=== PATIENT | female | born 1940 | race Caucasian/White ===

== ENCOUNTER → 2024-02-02 11:03 | Outpatient (REF) | payer OTHER, SELFPAY ==
[2024-02-02 13:46] LABS: % Basophils 0.6 % (0-2); % Eosinophils 2.9 % (0-6); % Immature Granulocytes 0.2 % (0-0.5); % Lymphocytes 33.2 % (20.5-51.1); % Monocytes 7.3 % (1.7-9.3); % Neutrophils 55.8 % (42.2-75.2); Absolute Eosinophils 0.2 10^3/uL (0-0.7); Absolute Lymphocytes 1.8 10^3/uL (1.2-3.4); Absolute Monocytes 0.4 10^3/uL (0.1-0.6); Hematocrit 40.9 % (37.0-47.0); Hemoglobin 13.8 g/dL (12.0-16.0); Mean Corp Hgb Conc. 33.7 g/dL (33.0-37.0); Mean Corpuscular Hgb 29.1 pg (27.0-31.0); Mean Corpuscular Volume 86.3 fL (81.0-99.0); Mean Platelet Volume 9.1 fL (7.4-10.4); Nucleated Red Blood Cells % 0 %; Platelet Count 234 10^3/uL (130-400); Red Blood Cell Count 4.74 10^6/uL (4.20-5.40); Red Cell Dist. Width 13.2 % (11.5-14.5); White Blood Cell Count 5.5 10^3/uL (4.8-10.8)
[2024-02-02 14:05] LABS: ALT (SGPT) 24 U/L (0-35); AST (SGOT) 30 U/L (14-36); Albumin 4.3 g/dl (3.5-5.0); Alkaline Phosphatase 78 U/L (38-126); Blood Urea Nitrogen 13 mg/dl (7-17); Calcium 10.1 mg/dl (8.4-10.2); Carbon Dioxide 27 mmol/L (22-30); Chloride 106 mmol/L (98-107); Glucose 93 mg/dl (70-99); HDL Cholesterol 55 mg/dl; LDL Cholesterol, Calculated 136 mg/dl; Potassium 4.5 mmol/L (3.5-5.1); Sodium 139 mmol/L (135-145); Total Bilirubin 0.5 mg/dl (0.2-1.3); Total Cholesterol 221 mg/dl (50-199); Total Protein 6.5 g/dl (6.3-8.2); Triglyceride 150 mg/dl (10-149); Very Low Density Lipoprotein 30 mg/dl (0-30); eGFR > 60.00
[2024-02-02 14:13] LABS: Free T4 1.45 ng/dl (0.78-2.19); Vitamin D, 25-OH*** 34.1 ng/mL (30-80)
[2024-02-02 14:26] LABS: TSH 1.93 uIU/ml (0.47-4.68)
== END ==
LOC: REG 11:03
PROVIDERS: ATTENDING PHYSICIAN Physician Assistant
DX: I10 Essential (primary) hypertension (principal); Z68.41 Body mass index [BMI] 40.0-44.9, adult; F41.9 Anxiety disorder, unspecified; E83.52 Hypercalcemia; G56.02 Carpal tunnel syndrome, left upper limb; K21.9 Gastro-esophageal reflux disease without esophagitis; Z12.31 Encounter for screening mammogram for malignant neoplasm of breast
CPT/HCPCS: 36415; 80053; 80061; 82306; 84439; 84443; 85025

== ENCOUNTER 2024-05-17 03:29 | Observation (INO) | payer OTHER, SELFPAY ==
[2024-05-16 22:30] VITALS: BMI 40.3
[2024-05-16 22:55] VITALS: BP 158/106
[2024-05-16 23:07] LABS: % Basophils 0.3 % (0-2); % Eosinophils 2.1 % (0-6); % Immature Granulocytes 0.1 % (0-0.5); % Monocytes 8.6 % (1.7-9.3); % Neutrophils 55.9 % (42.2-75.2); Absolute Eosinophils 0.2 10^3/uL (0-0.7); Absolute Lymphocytes 2.3 10^3/uL (1.2-3.4); Absolute Monocytes 0.6 10^3/uL (0.1-0.6); Absolute Neutrophils 3.9 10^3/uL (1.4-6.5); Hematocrit 42.1 % (37.0-47.0); Hemoglobin 14.6 g/dL (12.0-16.0); Mean Corp Hgb Conc. 34.7 g/dL (33.0-37.0); Mean Corpuscular Hgb 29.7 pg (27.0-31.0); Mean Corpuscular Volume 85.7 fL (81.0-99.0); Mean Platelet Volume 9.1 fL (7.4-10.4); Nucleated Red Blood Cells % 0 %; Platelet Count 198 10^3/uL (130-400); Red Blood Cell Count 4.91 10^6/uL (4.20-5.40); Red Cell Dist. Width 13.3 % (11.5-14.5)
--- NOTE | 2024-05-16 23:07 | ED.GENMED ---
History of Present Illness
General
Chief Complaint: Cardiac Symptoms
Source: patient
Exam Limitations: none
Time Seen by Provider: 05/16/24 22:56
History of Present Illness
History of Present Illness:
See MDM
Past History
Past History
ED Past Medical History: None
ED Past Surgical History: None
Social History
Tobacco: Non-smoker
Alcohol: None
Phy Exam
Physical Exam
Physical Exam:
See MDM
Course
Orders/Labs/Results
Orders:
Orders
05/16/24 22:35
EKG [Electrocardiogram (*1)] Urgent
Reason for Study: Atrial Fibrillation
05/16/24 22:36
EKG- Treatment ONCE
05/16/24 23:01
Complete Blood Count/With Diff Urgent
Comprehensive Metabolic Panel Urgent
TSH Reflex To Free T4 Urgent
05/16/24 23:05
Diltiazem 125 mg/125 ml Nss [Cardizem] 125 mg in 125 ml IV NOW
Initial dose in mg/hr, then titrate:: 5
Titrate to keep:: Heart rate 80-100 bpm
Titrate by mg/hr:: 5 mg/hr
Frequency of titrations (minutes):: 15
Maximum dose in mg/hr:: 15
Diltiazem HCl [Cardizem] 20 mg IV NOW STA
Abnormal Lab Results
05/16/24
23:01
BUN 19 H mg/dl
(7-17)
Glucose 122 H mg/dl
(70-99)
05/16/24 23:01
05/16/24 23:01
Vital Signs
Initial and Last Documented VS:
Initial Vital Signs
BP
158/106
05/16/24 22:55
Last Documented Vital Signs
Pulse Resp BP Pulse Ox
122 20 132/83 94
05/17/24 00:45 05/17/24 00:45 05/17/24 00:45 05/17/24 00:45
MDM/Problems Addressed
Differential Diagnosis Includes:
HPI and MDM Narrative:
83-year-old female presenting with fatigue and palpitations. This occurred as she was walking to the bathroom. EMS arrived and patient was found to be in new onset A-fib. Patient was given 15 mg of Cardizem by EMS. Although patient is
tachycardic to the 120s, she states she is feeling somewhat better. Will obtain basic blood work including thyroid testing and will place on Cardizem drip
Physical exam
General: Well appearing and non-toxic
HEENT: protecting airway
Neck: appears supple
CV: No evidence of cyanosis. Tachycardic and irregular
Resp: No accessory muscle use. Lungs clear
Abd: Non-distended
Extremities: No deformities. No leg edema
Neuro: alert
Psych: Normal affect
Skin: Intact
Problems Addressed including Acute and Chronic Conditions affecting care:
1. New onset A-fib
Acuity: acute
Prognosis: unstable
Details: Patient is not on anticoagulation. She is not a synchronized cardioversion candidate. Will attempt chemical cardioversion with IV Cardizem
Updates
After prolonged observation on the Cardizem drip, patient remains in A-fib with RVR. Symptoms have improved greatly but she is still tachycardic. Will admit
Differential Diagnosis (but not limited to): New onset A-fib, hypothyroid
Testing considered: Troponin but she denies chest pain
Drug therapy (if applicable): OTC meds, please see d/c instruction regarding Rx drugs
Amount and/or Complexity of Data Reviewed
Clinical info obtained from: Patient
External data reviewed: N/A
Labs I independently reviewed (but not limited to): Thyroid testing negative
Radiology: N/A
Pulse Ox: not hypoxic
EKG independently reviewed: A-fib with RVR, normal axis, no STEMI
Senior Manufacturing Engineer: A-fib with RVR
Critical Care: The high probability of a clinically significant, sudden or life threatening deterioration of the cardiovascular system(s) required my full and direct attention, intervention and personal management. The aggregate critical care time
was 35 minutes. This time is in addition to time spent performing reported procedures but includes the following:
[x] Data Review and interpretation
[x] Patient assessment and monitoring of vital signs
[x] Documentation
[x] Medication orders and management
Risk of Complication:
Social Determinants of health: Good social support
Discussed with other providers: Hospitalist
Escalation of Care includes Admit/Obs: Given the persistent A-fib despite being on a Cardizem drip, will admit
Occasional wrong word or 'sound a like' substitutions may have occurred due to the inherent limitations of voice recognition software. Read the chart carefully and recognize, using context, where substitutions have occurred.
*Critical Care Note
Total Time (30-74mins, 75-104mins- exclusive of procedures): 35 min
ED Attending Note
-
Portions of this chart may have been created with voice recognition software.� Occasional wrong word or��sound alike� substitutions may have occurred due to the inherent limitations of voice recognition software.
Discharge Plan
Departure
Patient Disposition: Admit
Date of Disposition: 05/17/24
Time of Disposition: 00:59
Admit to: Telemetry
Presentation/result/management discussed w/ accepting MD/DO: Hospitalist
Discharge Problem:
New onset a-fib
Referrals:
Deanne Crawford PA-C [Family Provider] -
Interventions
Interventions:
*General Assessment Last Done: 05/16/24 22:38
*Neglect/Abuse Screening Last Done: 05/16/24 22:38
*ED COVID-19 Vaccine History Last Done: 05/17/24 00:55
Discharge Date and Time
Print Language: CZECH
[2024-05-16] MEDS: CARDIZEM 20 MG IV (23:13)
[2024-05-16] MEDS: CARDIZEM 125 IV (23:13)
[2024-05-16 23:19] VITALS: BP 113/76
[2024-05-16 23:23] LABS: ALT (SGPT) 17 U/L (0-35); AST (SGOT) 25 U/L (14-36); Albumin 4.4 g/dl (3.5-5.0); Alkaline Phosphatase 112 U/L (38-126); Blood Urea Nitrogen 19 mg/dl (7-17); Calcium 10.2 mg/dl (8.4-10.2); Carbon Dioxide 24 mmol/L (22-30); Glucose 122 mg/dl (70-99); Total Bilirubin 0.4 mg/dl (0.2-1.3); Total Protein 6.5 g/dl (6.3-8.2); eGFR > 60.00
[2024-05-16 23:26] VITALS: BP 131/81
[2024-05-16 23:45] VITALS: BP 135/87
[2024-05-16 23:50] LABS: Chloride 103 mmol/L (98-107); Potassium 4.2 mmol/L (3.5-5.1); Sodium 139 mmol/L (135-145)
[2024-05-16 23:52] LABS: TSH Reflex To Free T4 3.64 uIU/ml (0.47-4.68)
[2024-05-17] VITALS (25 sets, daily range): BP systolic 102–151; BP diastolic 61–116; PULSE 88; BMI 39.1
--- NOTE | 2024-05-17 01:56 | HPS.HSE ---
Family Physician
-
Family Physician: Deanne Crawford
Chief Complaint
-
Palpitations and dyspnea
History of Present Illness
This is a 83-year-old female with a past medical history of hypothyroidism, hypertension and KAVITA on CPAP presenting to the emergency department with worsening episode of palpitations that was first noted today.
Patient presents having lesions of health but over the last few days she has noticed feeling more fatigued in the morning. She reports that this gets better towards the evening. She also seems to have reduced energy. She denies generally feeling
short of breath at rest. She denies any lower extremity swelling. Today she reported that while sitting she had palpitations which she described as fluttering in her upper abdomen. She checked her pulse and it was around 120. She denied any
nausea lightheadedness or dizziness. She denied having any chest pain. Has been no changes in her thyroid medications recently. She denied any other medication changes. She has been compliant with her CPAP. She denied any recent cold or flulike
symptoms and has no known sick contacts. about 9 months ago.
On arrival in the emergency department she was afebrile and tachycardic to the 120s. Blood pressure was 132/83 oxygen saturation was normal on room air. ECG shows atrial fibrillation with a rate of 121 and occasional PVC. CBCs were not
remarkable. Chemistries were mostly within normal limits. TSH was within normal limits.
Medical History
Past Medical History
Past Medical History: Reports HTN and Hypothyroidism
Additional Past Medical History:
KAVITA on cpap
Past Surgical History: Reports None
Social History
Tobacco: Non-smoker
Alcohol: None
Drug: None
Personal:
Living: Alone
Employment: Retired
Family History
Family History: Not pertinent
Allergies / Home Medications
Allergies reflects when Allergies were last updated in [facility].
Home Medications with original date entered in [facility]
Allergy/Medication List:
Allergies
Allergy/AdvReac Type Severity Reaction Status Date / Time
Fgashyn-XWC-AvH Reductase Allergy Unknown Unknown Verified 05/16/24 22:37
Inhibitor
beta matthew Allergy Unknown Uncoded 05/16/24 22:37
Review of Systems
-
History Source: Patient
Constitutional: Reports No Symptoms
EENT: Reports No Symptoms
Respiratory: Reports No Symptoms
Cardiac: Reports Palpitations
Abdomen/GI: Reports No Symptoms
: Reports No Symptoms
Musculoskeletal: Reports No Symptoms
Skin: Reports No Symptoms
Neurological: Reports No Symptoms
Endocrine: Reports No Symptoms
Hematologic/Lymphatic: Reports No Symptoms
Psych: Reports No Symptoms
Physical Exam
Vital Signs
Vital Signs
Pulse Resp BP Pulse Ox
122 20 132/83 94
05/17/24 00:45 05/17/24 00:45 05/17/24 00:45 05/17/24 00:45
Physical Exam
General: Well Developed, Well Nourished, No Apparent Distress and Comfortable
HEENT: NormoCephalic, Anicteric, Moist mucous membranes and Atraumatic
Respiratory: Clear
Cardiac: S1/S2 and Irregular Rhythm
Breast: Deferred by me
GI: Soft, Non Tender, Non Distended and Normal Bowel Sounds
Rectal: Deferred by Provider
Genito-urinary: Deferred by me
Musculoskeletal: No Clubbing, No Cyanosis and No Edema
Skin: Warm
Neuro: AO x 3
Hematologic/Lymphatic: No Lymphadenopathy
Psych: Calm
Laboratory Results
-
05/16/24 23:01
05/16/24 23:01
Laboratory Results
Total Bilirubin 0.4 mg/dl (0.2-1.3) 05/16/24 23:01
AST 25 U/L (14-36) 05/16/24 23:01
ALT 17 U/L (0-35) 05/16/24 23:01
Alkaline Phosphatase 112 U/L (38-126) 05/16/24 23:01
Data Reviewed
-
Medical Tests (Nuc Med, Echo, EKG etc): Image Personally Visualized and interpreted
Lab Data: Labs Reviewed by me
Old Records: Reviewed
Impression/Plan
-
IMPRESSION:
PLAN:
1. AFIB RVR - New onset, duration unclear but appears to have been rapid starting today. Hemodynamically stable. TSH WNL. Rate still rapid on diltiazem gtt. No signs of CHF on exam.
- admit to IVU
- continue diltiazem gtt for now.
- echo in am
- [id number] = 4, eliquis 5mg po bid
- cardiology consultation
2. HTN
- continue losartan 50
3. Hypothyroid - TSH normal
- continue syntrhoid 75mcg
4. KAVITA
- cpap hs
DVT PPX - eliquis
Code status - Full
[2024-05-17 04:28] LABS: Blood Urea Nitrogen 18 mg/dl (7-17); Calcium 9.7 mg/dl (8.4-10.2); Carbon Dioxide 22 mmol/L (22-30); Chloride 107 mmol/L (98-107); Estimated Creatinine Clearance 72 ml/min; Glucose 119 mg/dl (70-99); Magnesium 2.2 mg/dl (1.6-2.3); Potassium 4.5 mmol/L (3.5-5.1); Sodium 142 mmol/L (135-145); eGFR > 60.00
--- NOTE | 2024-05-17 04:32 | PTCARENOTE ---
Received patient AAOx3, following commands, denying pain. Assist x1, uses a cane at baseline. Sinus brody, 40s-50s, BP stable, 130s-140s/60s, normothermic. Trace lower extremity edema. On CPAP, saturating 96%. Lung sounds clear and diminished
throughout. Hypoactive bowel sounds, abdomen round and soft, nontender. Last BM yesterday. Ambulates to bathroom to void. Skin intact, PIV capped, WNL. Call garcia within reach, able to make needs known.
[2024-05-17] MEDS: ELIQUIS 5 MG PO ×2 (07:55→18:44)
--- NOTE | 2024-05-17 08:00 | PTCARENOTE ---
Received pt. @ change of shift. Pt. AAOx3, denies pain. SB/SR on monitor w 1st degree AVB and prolonged QT. CPAP removed by nightshift RN approx 0600 and pt. SpO2 97% on RA. Auscultated crackles @ L base. Occ cnp cough. +BS, abd soft/round/obese.
Tolerating diet. Cont BM. Stress inc bladder. @ 20 L AC patent, dressing c/d/i. Assisted x1 w RW into chair, steady gait. Instructed on how to report care concerns and call jose toure in reach.
--- NOTE | 2024-05-17 08:20 | CON.CAR ---
Addendum entered and electronically signed by Yobani Hanks DO 05/17/24 15:20:
I saw and examined the patient.
The Electrical Test Technician's note was reviewed and I agree with the note.
Comment:
Plan:
Discussed AFib including rhythm control, rate control and stroke prophylaxis
She remains in sinus after spontaneous conversion
Cont Eliquis
Transition to oral Cardizem.
Echo with preserved EF
Discussed pulm follow up regarding CPAP mask as she has long hx of KAVITA
TSH WNL
Outpt follow up and monitor for recurrence
Will arrange outpt follow up .
Original Note:
Consultation
Consultation Request
Date/Time Consultation Requested: 05/17/24 at 0329
Date/Time Consultation Performed: 05/17/24 at 0820
Requesting Provider: Dr. Carlton
Performing Provider: Dr. Hanks
Reason for Consultation: Afib
Medical History
-
History of Present Illness:
Patient came to [facility] late last night with palpitations and is now admitted with new Afib and cardiology has been consulted. Patient stood up from a chair and felt sudden onset palpitations described as an uneasiness in her chest. She was
lightheaded. No chest pain or SOB. She has never had a feeling like this before. She checked her HR on a home pulse ox and her HR was 119. Due to ongoing symptoms she called 911 and she was in Afib with RVR so paramedics gave her Cardizem 15 mg IV
x1. In [facility] her ECG showed Afib with RVR and she was started on a Cardizem gtt. Patient spontaneously converted to SR early this morning and remains in SR now.
PMH:
HTN
KAVITA on CPAP
Hypothyroidism
Past Medical History
Past Medical History: Other (in HPI)
Past Surgical History: Orthopedic (MESFIN, TKA)
Social History
Tobacco: Non-Smoker
Alcohol: None
Drug: None
Personal:
Living: Alone (independent living apartment in [place])
Family History
Family History: Cancer
Allergies / Home Medications
Allergy/AdvReac Type Severity Reaction Status Date / Time
Yvyphgb-CBV-UoA Reductase Allergy Unknown Unknown Verified 05/16/24 22:37
Inhibitor
beta matthew Allergy Unknown Uncoded 05/16/24 22:37
�Medication �Instructions �Recorded �Confirmed �Type
losartan 50 mg tablet 50 mg PO DAILY 05/17/24 History
Review of Systems
-
History Source: Patient
All other systems: Negative unless noted
Physical Exam
Vital Signs
Temp Pulse Resp BP Pulse Ox
97.6 F 60 12 150/78 97
05/17/24 08:00 05/17/24 08:00 05/17/24 08:00 05/17/24 08:00 05/17/24 08:01
GEN: NAD, AAOx3
HEENT: EOMI, MMM
LUNGS: CTA B/L, no wheezes or rales
CV: Reg, S1/S2, no murmur
ABD: soft, BS+, NT, ND
EXT: No clubbing, cyanosis, lesions or edema B/L
NEURO: Gross non-focal
SKIN: Warm, dry and pink. No rash
Lab Results
05/16/24 23:01
05/17/24 03:59
Impression / Plan
-
PCP: Deanne Crawford PA-C with internal medicine [facility]
Cardiology: None prior to admission
Impression:
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
HTN
KAVITA on CPAP
Hypothyroidism
Echo 05/17/24: Study pending
Plan:
-Patient came to [facility] late last night with palpitations and is now admitted with new Afib and cardiology has been consulted. Patient stood up from a chair and felt sudden onset palpitations described as an uneasiness in her chest. She was
lightheaded. No chest pain or SOB. She has never had a feeling like this before. She checked her HR on a home pulse ox and her HR was 119. Due to ongoing symptoms she called 911 and she was in Afib with RVR so paramedics gave her Cardizem 15 mg IV
x1. In [facility] her ECG showed Afib with RVR and she was started on a Cardizem gtt. Patient spontaneously converted to SR early this morning and remains in SR now.
-Newly diagnosed Afib that spontaneously converted to SR. Remains in SR now. Cardizem gtt stopped early this AM. Will start Cardizem CD 120 mg daily now.
-ECG reviewed by me shows Afib with RVR.
-Eliquis 5 mg BID (age 83, Cre 0.7 and wt 103.2 kg) started last night. Will ask CM to check on cost.
-Patient has a h/o KAVITA and uses CPAP, but has not been re-evaluated in 4+ years since she moved from [facility]. Recommend outpatient pulmonology f/u for KAVITA therapy management. Described the relationship between KAVITA and Afib.
-Outpatient dose of losartan 50 mg daily for h/o HTN can be restarted, will order now.
-Check echo
-Talked about natural progression of Afib and rate control vs rhythm control.
--- NOTE | 2024-05-17 08:50 | W.PN.UPDATE ---
Update Note
Progress Note Update
Admitted early hours of this morning for new onset of atrial fibrillation with shortness of breath.
Off of IV Cardizem drip as she went back to sinus rhythm. She is hemodynamically stable. Not hypoxic at rest.
Chest sounds clear.
Continue with Eliquis which was initiated for stroke prevention because of her increased risk score.
Await echocardiogram cardiology input.
Also await med rec to be completed.
TSH normal.
Transfer to telemetry.
--- NOTE | 2024-05-17 10:24 | W.CHA2DS2VAS ---
[id number] Score
Score
Age in Years (65=0, 65-74=1, >/=75=2): > or = 75
Sex (Female=+1): Female
Congestive Heart Failure History (Yes=+1): No
Hypertension History (Yes=+1): Yes
Stroke/TIA/Thromboembolism History (Yes=+2): No
Vascular Disease History (Yes=+1): No
Diabetes Mellitus (Yes=+1): No
Score >/=2 is otherwise an anticoagulation candidate: 4
[2024-05-17] MEDS: SYNTHROID 75 MCG PO (11:01)
[2024-05-17] MEDS: COZAAR 50 MG PO (11:01)
[2024-05-17] MEDS: CARDIZEM CD 120 MG PO (11:01)
--- NOTE | 2024-05-17 11:05 | PTCARENOTE ---
Orders received for PO Cardizem. Prior to admin, Cardiology, Tomas Coelho, notified of pt.'s bradycardia w rate in 50's. Received further orders for hold parameters- see MAR. Pt. assisted back to bed x1; CPAP placed by RT and pt. resting @ this time.
Awaiting ECHO. Call jose toure in reach.
--- NOTE | 2024-05-17 16:06 | W.DS.TRANS ---
DC Summary - Edge [employer]
-
Discharge Instructions:
Discharge Diagnosis/Procedures Paroxysmal atrial fibrillation with spontaneous
conversion to sinus rhythm
Diet Regular
Activity As tolerated
Driving Restrictions As prior to admission
Instructions:
Stand-Alone Forms:
Changes to Home Medications: Yes
Discharge Medications:
DC Medications w/original date entered in [place]
apixaban 5 mg tablet (Eliquis) 5 mg PO BID Blood clot prevention/tx #60 tabs 05/17/24
cholecalciferol (vitamin D3) 50 mcg (2,000 unit) tablet 50 mcg PO QPM Supplement 05/17/24
cyanocobalamin (vitamin B-12) 1,000 mcg tablet (Vitamin B-12) 2,000 mcg PO QPM Supplement 05/17/24
diltiazem HCl 120 mg capsule,extended release 24 hr 120 mg PO DAILY Arrhythmia #30 caps 05/17/24
docusate sodium 100 mg capsule 100 mg PO QPM Constipation 05/17/24
famotidine-Ca carb-mag hydrox 10 mg-800 mg-165 mg chewable tablet (Pepcid Complete) 1 tab PO QPM Gastrointestinal Issue 05/17/24
levothyroxine 75 mcg tablet 75 mcg PO DAILY@0600 Thyroid 05/17/24
loratadine 10 mg tablet (Claritin) 10 mg PO QPM Allergies 05/17/24
losartan 50 mg tablet 50 mg PO QPM Blood Pressure 05/17/24
pseudoephedrine HCl 30 mg tablet 30 mg PO DAILYPRN PRN CONGESTION 05/17/24
psyllium 1 packet PO QPM Constipation 05/17/24
sodium chloride 0.65 % nasal spray aerosol (Saline Nasal) 1 spray intranasal BIDPRN PRN CONGESTION 05/17/24
Home Medication Changes
New med - Eliquis and cadizem CD
Pending Results: No
--- NOTE | 2024-05-17 16:12 | CM ---
college or university business manager reviewed patient's chart and met with patient and patient was admitted under OBS, MANUEL letter provided to patient, patient lives alone in a 1 story home, independent with adl's and uses a cane with ambulation. Per notes patient is for
discharge to home today. Patient will be on Eliquis, cost of Eliquis 5mg BID is zero copay.
Pharmacy; [facility]
PCP: Deanne Crawford
Plan; Home no needs son to transport patient to home.
--- NOTE | 2024-05-17 16:43 | W.DCSUMMARY ---
Discharge Summary
Discharge Data
Date of Admission: 05/17/24
Date of Discharge: 05/17/24
-
Pending Results: No
Hospital Course
primary diagnosis:
New onset of atrial fibrillation
Secondary diagnosis:
hypothyroidism
Hypertension
Hospital course:
patient presented with palpitation and shortness of breath. She was noted to be in A-fib with RVR. Hemodynamically stable on presentation. No evidence of CHF. She was put on Cardizem drip and she spontaneously converted to sinus rhythm this
morning. She had an echocardiogram which showed normal EF. Her [id number] = 4 0 started on Eliquis. She was put on Cardizem as well by cardiology. She remained in sinus rhythm and she was discharged home today to follow with cardiology.
She has a history of sleep apnea uses CPAP and has not been reevaluated in the last 4 years. Recommend outpatient pulmonology to make sure sleep apnea is under control.
Consultants on board:
Cardiology-Dr. Hanks
Discharge Plan
-
Patient Disposition: Home (Routine Discharge)
Discharge Diagnosis/Procedures: Paroxysmal atrial fibrillation with spontaneous conversion to sinus rhythm
Diet: Regular
Activity: As tolerated
Driving Restrictions: As prior to admission
Referrals:
Deanne Crawford PA-C [Family Provider] - in less than 1 week
Yobani Hanks DO [Active] - 06/05/24 1:20 pm (You have an appt to see Dr. Hanks's physician doctor's assistant, Zoya, at the [facility] office on 06/05/24 at 1:20 PM. Please call [phone] if you need to reschedule.)
Tyree Pop MD [Active] - (Please make an appt with the Pulmonology office to make sure your CPAP titrations are still correct. This is the contact information for a group at [facility], but there other groups at other hospitals as
well so please choose which pulmonology group you are comfortable. )
Additional Discharge Medication Instructions: -Start taking Cardizem CD (diltiazem) 120 mg once a day to help slow down heart rate and reduce the risk of recurrent atrial fibrillation.
-Start taking Eliquis 5 mg twice a day for blood clot prevention
Prescriptions:
New
diltiazem HCl 120 mg Capsule,Extended Release 24hr
120 mg PO DAILY Qty: 30 11RF
Eliquis 5 mg Tablet
5 mg PO BID Qty: 60 11RF
Continued
losartan 50 mg Tablet
50 mg PO QPM
levothyroxine 75 mcg Tablet
75 mcg PO DAILY@0600
psyllium Packet
1 packet PO QPM
cyanocobalamin (vitamin B-12) [Vitamin B-12] 1,000 mcg Tablet
2,000 mcg PO QPM
docusate sodium 100 mg Capsule
100 mg PO QPM
pseudoephedrine HCl 30 mg Tablet
30 mg PO DAILYPRN PRN (Reason: CONGESTION)
loratadine [Claritin] 10 mg Tablet
10 mg PO QPM
Saline Nasal 0.65 % Aerosol,[place]
1 spray INTRANASAL BIDPRN PRN (Reason: CONGESTION)
Pepcid Complete 10-800-165 mg Tablet,Chewable
1 tab PO QPM
cholecalciferol (vitamin D3) 50 mcg (2,000 unit) Tablet
50 mcg PO QPM
Discharge Orders:
Discharge Patient (As Directed); Ordered 05/17/24
Ordered By: Steve Carlton
Discharge Date and Time
Print Language: CHILEAN
--- NOTE | 2024-05-17 17:11 | PTCARENOTE ---
Discharge paperwork completed with patient; pt. verbalizes understanding of instructions/medications/prescriptions. Awaiting family arrival for d/c transportation; pt. reports family ETA is 1900. Tolerated dinner. Stand by assisted back to bed.
Call garcia w in reach.
--- NOTE | 2024-05-17 19:04 | PTCARENOTE ---
PIV and tele pack removed by PCT. Pt. d/c'd to home w son via wheelchair/staff escort and belongings. No further needs from this RN
== END 2024-05-17 18:50 | disposition home or self-care (01) ==
LOC: ICU 03:29
PROVIDERS: ADMITTING PHYSICIAN Internal Medicine; ATTENDING PHYSICIAN Internal Medicine; EMERGENCY PHYSICIAN Student in an Organized Health Care Education/Training Program; FAMILY PHYSICIAN Physician Assistant; OTHER PHYSICIAN Nuclear Medicine Nuclear Cardiology
DX: I48.0 Paroxysmal atrial fibrillation (principal); R53.83 Other fatigue; R00.2 Palpitations; R00.0 Tachycardia, unspecified; R00.1 Bradycardia, unspecified; E03.9 Hypothyroidism, unspecified; R42 Dizziness and giddiness; I10 Essential (primary) hypertension; R06.02 Shortness of breath; I45.10 Unspecified right bundle-branch block; G47.33 Obstructive sleep apnea (adult) (pediatric); I08.1 Rheumatic disorders of both mitral and tricuspid valves; Z88.8 Allergy status to other drugs, medicaments and biological substances; Z79.01 Long term (current) use of anticoagulants
CPT/HCPCS: 80048; 80053; 83735; 84443; 85025; 93005; 93306; 94660; 96365; 96366; 99291; G0378

== ENCOUNTER → 2024-05-23 09:15 | Outpatient (REF) | payer OTHER, SELFPAY ==
[2024-05-23 10:53] LABS: ALT (SGPT) 16 U/L (0-35); AST (SGOT) 23 U/L (14-36); Albumin 4.3 g/dl (3.5-5.0); Alkaline Phosphatase 92 U/L (38-126); Blood Urea Nitrogen 18 mg/dl (7-17); Calcium 10.7 mg/dl (8.4-10.2); Carbon Dioxide 26 mmol/L (22-30); Chloride 102 mmol/L (98-107); Glucose 96 mg/dl (70-99); Potassium 4.4 mmol/L (3.5-5.1); Sodium 141 mmol/L (135-145); Total Bilirubin 0.7 mg/dl (0.2-1.3); Total Protein 6.6 g/dl (6.3-8.2); eGFR > 60.00
[2024-05-23 11:13] LABS: Free T4 1.39 ng/dl (0.78-2.19); Vitamin D, 25-OH*** 44.8 ng/mL (30-80)
[2024-05-23 11:26] LABS: TSH 5.55 uIU/ml (0.47-4.68)
== END ==
LOC: REG 09:15
PROVIDERS: ATTENDING PHYSICIAN Internal Medicine Endocrinology, Diabetes & Metabolism; FAMILY PHYSICIAN Physician Assistant
DX: E83.52 Hypercalcemia (principal); E34.9 Endocrine disorder, unspecified; E55.9 Vitamin D deficiency, unspecified
CPT/HCPCS: 36415; 80053; 82306; 83970; 84439; 84443

== ENCOUNTER 2024-06-28 22:03 | Emergency (ER) | payer OTHER, SELFPAY ==
[2024-06-28] VITALS (7 sets, daily range): BP systolic 111–161; BP diastolic 58–100; BMI 37.2
--- NOTE | 2024-06-28 22:17 | ED.GENMED ---
History of Present Illness
<REDD Zamudio - Last Filed: 06/29/24 00:21>
General
Chief Complaint: Heart Rate Problem
Source: patient
Exam Limitations: none
Time Seen by Provider: 06/28/24 22:06
History of Present Illness
History of Present Illness:
This is a 83 year old female that comes in with ambulance with c/o atrial fib. States that she was on the Phone and she started to feel funny. States that she felt weak and put the pulse ox on her finger. States that at first it said her heart rate
was in the 30's but then it went up to 125. States that she feels a little SOB and has some chest tightness. Denies any fever, chills, abd pain, nausea, vomiting, diarrhea, headache, dizziness, urinary burning
Past History
<REDD Zamudio - Last Filed: 06/29/24 00:21>
Past History
ED Past Medical History: Arrthythmia (Atrial fib), HTN, Hypothyroidism, Psychiatric (Depression) and Other (Neuropathy, Chronic sinus issues, Sleep apnea)
ED Past Surgical History: Gynecological (Hysterectomy) and Orthopedic (Robe knee replacements, Bilateral hip replacements)
Social History
Tobacco: Non-smoker
Alcohol: None
Personal:
Living: alone
Review of Systems
<REDD Zamudio - Last Filed: 06/29/24 00:21>
Review of Systems
All Other Systems: ROS reviewed and negative except as documented in HPI and ROS
Constitutional: Reports no symptoms; Denies fever or chills
EENT: Reports no symptoms
Respiratory: Reports trouble breathing; Denies cough
Cardiac: Reports chest pain (tightness)
ABD/GI: Reports no symptoms; Denies abdominal pain, nausea, vomiting or diarrhea
: Reports no symptoms; Denies dysuria, frequency or urgency
Musculoskeletal: Reports no symptoms
Skin: Reports no symptoms
Neurological: Reports no symptoms; Denies dizzy or headache
Psychiatric: Reports no symptoms
Phy Exam
<REDD Zamudio - Last Filed: 06/29/24 00:21>
General Physical Exam
General Presentation: no apparent distress
General age: appears stated age
General Skin: warm and dry
General Habitus: elderly
General Mental: alert
General Hydration: appears well hydrated
ENT Exam
ENT Exam: TM's normal, pharynx normal and neck supple
Eye Exam
Eye Exam: EOMI
Cardiovascular Exam
Cardiovascular Exam: no edema, normal peripheral pulses and irregularly irregular
Pulmonary Exam
Pulmonary Exam: lungs clear, no respiratory distress, no rales, chest non tender, no crackles, no rhonchi, no wheezing and no cough
Gastrointestinal Exam
Gastrointestinal Exam: normal bowel sounds, non tender, soft, no organomegaly, no pulsatile mass and non distended
Musculoskeletal Exam
Musculoskeletal Exam: full ROM and no edema
Skin Exam
Skin Exam: normal color, warm/dry, no rash and no petechia
Psychiatric Exam
Psychiatric Exam: normal mood/affect
Course
<REDD Zamudio - Last Filed: 06/29/24 00:21>
Orders/Labs/Results
Orders:
Orders
06/28/24 22:09
EKG [Electrocardiogram (*1)] Urgent
Reason for Study: Atrial Fibrillation
EKG- Treatment ONCE
06/28/24 22:16
0.9% Sodium Chloride 1000 ml [Nss] 1,000 ml IV BOLUS
Diltiazem 125 mg/125 ml Nss [Cardizem] 125 mg in 125 ml IV NOW
Initial dose in mg/hr, then titrate:: 5
Titrate to keep:: Heart rate 80-100 bpm
Titrate by mg/hr:: 5 mg/hr
Frequency of titrations (minutes):: 15
Maximum dose in mg/hr:: 15
Diltiazem HCl [Cardizem] 10 mg IV NOW STA
06/28/24 22:24
Complete Blood Count/With Diff Urgent
Comprehensive Metabolic Panel Urgent
Free T4 Urgent
TSH Reflex To Free T4 Urgent
Troponin I Urgent
06/28/24 22:57
Propofol [Diprivan] 20 ml .ROUTE .STK-MED
06/28/24 23:05
Ondansetron Injectable [Zofran] 4 mg IV NOW STA
06/28/24 23:16
EKG [Electrocardiogram (*1)] Urgent
Reason for Study: Other
Other Reason for Exam: post cardioversion
06/28/24 23:17
EKG- Treatment ONCE
Abnormal Lab Results
06/28/24
22:24
Absolute Neuts (auto) 6.7 H 10^3/uL
(1.4-6.5)
Absolute Monos (auto) 0.8 H 10^3/uL
(0.1-0.6)
Carbon Dioxide 21 L mmol/L
(22-30)
BUN 20 H mg/dl
(7-17)
Glucose 135 H mg/dl
(70-99)
Calcium 10.8 H mg/dl
(8.4-10.2)
Total Bilirubin 0.1 L mg/dl
(0.2-1.3)
TSH (Reflex) 5.94 H uIU/ml
(0.47-4.68)
06/28/24 22:24
06/28/24 22:24
Carbon dioxide slightly low. Dehydration. Glucose nonfasting. Calcium slightly elevated. Total bl slightly low. TSH elevation at 5.94, with Free T4 0.90, Troponin <0.012
Vital Signs
Initial and Last Documented VS:
Initial Vital Signs
Temp Pulse Resp BP Pulse Ox
98.7 F 125 19 161/82 97
06/28/24 22:09 06/28/24 22:09 06/28/24 22:09 06/28/24 22:09 06/28/24 22:09
Last Documented Vital Signs
Temp Pulse Resp BP Pulse Ox
98.3 F 63 22 120/64 94
06/28/24 23:14 06/28/24 23:41 06/28/24 23:41 06/28/24 23:41 06/28/24 23:41
<Ilya Enciso MD - Last Filed: 06/28/24 22:56>
Orders/Labs/Results
Orders:
Orders
06/28/24 22:09
EKG [Electrocardiogram (*1)] Urgent
Reason for Study: Atrial Fibrillation
EKG- Treatment ONCE
06/28/24 22:16
0.9% Sodium Chloride 1000 ml [Nss] 1,000 ml IV BOLUS
Diltiazem 125 mg/125 ml Nss [Cardizem] 125 mg in 125 ml IV NOW
Initial dose in mg/hr, then titrate:: 5
Titrate to keep:: Heart rate 80-100 bpm
Titrate by mg/hr:: 5 mg/hr
Frequency of titrations (minutes):: 15
Maximum dose in mg/hr:: 15
Diltiazem HCl [Cardizem] 10 mg IV NOW STA
06/28/24 22:24
Complete Blood Count/With Diff Urgent
Comprehensive Metabolic Panel Urgent
Free T4 Urgent
TSH Reflex To Free T4 Urgent
Troponin I Urgent
06/28/24 22:57
Propofol [Diprivan] 20 ml .ROUTE .STK-MED
06/28/24 23:05
Ondansetron Injectable [Zofran] 4 mg IV NOW STA
06/28/24 23:16
EKG [Electrocardiogram (*1)] Urgent
Reason for Study: Other
Other Reason for Exam: post cardioversion
06/28/24 23:17
EKG- Treatment ONCE
Abnormal Lab Results
06/28/24
22:24
Absolute Neuts (auto) 6.7 H 10^3/uL
(1.4-6.5)
Absolute Monos (auto) 0.8 H 10^3/uL
(0.1-0.6)
Carbon Dioxide 21 L mmol/L
(22-30)
BUN 20 H mg/dl
(7-17)
Glucose 135 H mg/dl
(70-99)
Calcium 10.8 H mg/dl
(8.4-10.2)
Total Bilirubin 0.1 L mg/dl
(0.2-1.3)
TSH (Reflex) 5.94 H uIU/ml
(0.47-4.68)
06/28/24 22:24
06/28/24 22:24
Vital Signs
Initial and Last Documented VS:
Initial Vital Signs
Temp Pulse Resp BP Pulse Ox
98.7 F 125 19 161/82 97
06/28/24 22:09 06/28/24 22:09 06/28/24 22:09 06/28/24 22:09 06/28/24 22:09
Last Documented Vital Signs
Temp Pulse Resp BP Pulse Ox
98.3 F 63 22 120/64 94
06/28/24 23:14 06/28/24 23:41 06/28/24 23:41 06/28/24 23:41 06/28/24 23:41
Procedures
Mariellt;REDD Zamudio - Last Filed: 06/29/24 00:21>
Moderate Sedation
ASA Risk Score: Class I
Chart and allergies reviewed: Yes
Consent for anesthesia obtained: Yes
Time out completed (validating right patient & procedure): Yes
Moderate Sedation Start Time(when first medication is given): 23:56
History of difficult intubation: No
Airway free of obstruction: Yes
Patient has a gag reflex: Yes
Patient is able to open mouth: Yes
Patient has no dentures: No
Patient has no loose teeth: No
Medication administered by Provider during Moderate Sedation: IV Propofol (mg)
Total dose administered: 50
Time drug administered: 23:26
Moderate Sedation Procedure End Time: 23:40
Comment: 100 joules used for cardioversion, Dr. Enciso in room.
<REDD Zamudio - Last Filed: 06/29/24 00:21>
MDM/Problems Addressed
Differential Diagnosis Includes:
Atrial fib, Dehydration
MDM/Problems Addressed:
This is a 83 year old female that comes in by ambulance with c/o atrial fib. States that she was on the phone when she started to not feel well. States that she put on a pulse ox and her heart rate was 125.
Will check labs, give IV fluids and start Cardizem.
Discussed, case with Dr. Enciso. Will stop the Cardizem and do cardioversion. Dr. Enciso contacted [facility], Dr. Marshall, as patient has only been on Eliquis for 6 weeks. They were in agreement with Cardioversion. Patient set up for
Cardioversion.
Patient tolerated Cardioversion will. Repeat ECG shows Sinus Bradycardia at 56. left axis, Normal QRS, Negative for ischemia. Patient to follow up with the [facility] for further evaluation. Patient to increased her water intake to 8-8oz glasses
daily. Return with any concerns.
Chronic conditions affecting care:
Atrial fib
Acute Exacerbation and/or Progression of Chronic Illness:
Atrial fib
<REDD Zamudio - Last Filed: 06/29/24 00:21>
*Pulse Oximetry
Patient hypoxic: no
*EKG
Interpreted by ED Provider?: Yes
Heart Rate: 124
Rate: tachycardiac
Rhythm: a-fib and PVC's
[place]: left axis deviation
QRS Pattern: normal QRS (Incomplete right BBB)
Ischemia: no ischemia
*Community Director Interpretation
Rate: tachycardiac
Heart Rate: 121
Rhythm: a-fib
*Critical Care Note
Total Time (30-74mins, 75-104mins- exclusive of procedures): Not Applicable
ED Attending Note
<REDD Zamudio - Last Filed: 06/29/24 00:21>
-
Portions of this chart may have been created with voice recognition software.� Occasional wrong word or��sound alike� substitutions may have occurred due to the inherent limitations of voice recognition software.
<Ilya Enciso MD - Last Filed: 06/28/24 22:56>
ED Attending Note
Patient seen and examined by attending physician: Yes
ED Attending Note:
I have seen and evaluated the patient with a [id number] encounter. I have spoken to the advance practicer provider and involved in the medical history, the physical exam, medical decision making.
Evaluation and management service: agree unless noted differently below.
Results interpretation: agree unless noted differently below.
Focused HPI: 83-year-old female with history as documented notable for recently diagnosed atrial fibrillation presents to the emergency room for evaluation of fatigue, chest tightness. Patient was admitted in May for new onset atrial
fibrillation with RVR. Presented with similar symptoms and converted spontaneously to sinus rhythm with rate control. She was started on Eliquis at that time and has been compliant since without any missed doses. Tonight she was talking on the
phone and had abrupt onset of tightness in her chest and weakness consistent with prior A-fib symptoms. She checked her heart rate and it was severely elevated. Called EMS to bring her to the hospital. She was given 20 mg of IV diltiazem en route
to the hospital. Denies any dizziness or lightheadedness. Denies shortness of breath. Denies any other complaints.
Physical exam: Awake alert oriented x 3. Tachycardic with irregular regular rhythm. No edema.
Medical Decision Makin-year-old female presents in atrial fibrillation with RVR. Given diltiazem prehospital with minimal effect on heart rate. Heart rate variable 130s to 160s here. Given additional diltiazem and rate improved a bit but
still in atrial fibrillation. She is still symptomatic. Case discussed with cardiology�given compliance with anticoagulation and abrupt onset tonight she is a reasonable candidate for cardioversion. Will proceed with procedure.
Discharge Plan
Departure
Patient Disposition: Home (Routine Discharge)
Date of Disposition: 06/29/24
Time of Disposition: 00:03
Patient with high blood pressure during this ER visit?: No
Condition: Good
Covid-19: Not Applicable
Discharge Problem:
Atrial fibrillation, Encounter for cardioversion procedure
Instructions: Atrial Fibrillation (DC), Moderate Sedation in Adults (DC)
Prescriptions:
No Action
losartan 50 mg Tablet
50 mg PO QPM
levothyroxine 75 mcg Tablet
75 mcg PO DAILY@0600
diltiazem HCl 120 mg Capsule,Extended Release 24hr
120 mg PO DAILY Qty: 30 11RF
Eliquis 5 mg Tablet
5 mg PO BID Qty: 60 11RF
psyllium Packet
1 packet PO QPM
cyanocobalamin (vitamin B-12) [Vitamin B-12] 1,000 mcg Tablet
2,000 mcg PO QPM
docusate sodium 100 mg Capsule
100 mg PO QPM
pseudoephedrine HCl 30 mg Tablet
30 mg PO DAILYPRN PRN (Reason: CONGESTION)
loratadine [Claritin] 10 mg Tablet
10 mg PO QPM
Saline Nasal 0.65 % Aerosol,[place]
1 spray INTRANASAL BIDPRN PRN (Reason: CONGESTION)
Pepcid Complete 10-800-165 mg Tablet,Chewable
1 tab PO QPM
cholecalciferol (vitamin D3) 50 mcg (2,000 unit) Tablet
50 mcg PO QPM
Referrals:
Deanne Crawford PA-C [Family Provider] -
Yobani Hanks DO [Active] - Follow up in 2-3 days
Activity Restrictions/Additional Instructions:
As discussed, your blood work shows slight Dehydration. Your TSH is mildly elevated. Please follow up with your Manager Of Application Development for further evaluation. You have been given Conscious sedation and then cardioverted. PLEASE NO DRIVING OR ALCOHOL FOR
THE NEXT 24 HOURS. You are in a Sinus Bradycardia. Please call the [facility] tomorrow to set up an appointment for further evaluation as they may need to adjust your medication. IF YOU HAVE ANY CHEST PAIN, INCREASED HEART RATE OR YOU HAVE ANY
OTHER CONCERNS PLEASE RETURN TO THE EMERGENCY ROOM.
Interventions
Interventions:
*Risk Screen - Suicide Last Done: 06/28/24 22:09
*General Assessment Last Done: 06/28/24 22:09
*Neglect/Abuse Screening Last Done: 06/28/24 22:09
ED- Cardiac Assessment Last Done: 06/28/24 22:54
ED- Pulmonary Assessment Last Done: 06/28/24 22:54
Discharge Date and Time
Print Language: AUSTRIAN
[2024-06-28] MEDS: NSS 1000 IV (22:25)
[2024-06-28 22:32] LABS: % Basophils 0.2 % (0-2); % Eosinophils 0.8 % (0-6); % Immature Granulocytes 0.3 % (0-0.5); % Lymphocytes 24.8 % (20.5-51.1); % Monocytes 8.2 % (1.7-9.3); % Neutrophils 65.7 % (42.2-75.2); Absolute Eosinophils 0.1 10^3/uL (0-0.7); Absolute Lymphocytes 2.5 10^3/uL (1.2-3.4); Absolute Monocytes 0.8 10^3/uL (0.1-0.6); Absolute Neutrophils 6.7 10^3/uL (1.4-6.5); Hematocrit 41.5 % (37.0-47.0); Hemoglobin 14.3 g/dL (12.0-16.0); Mean Corp Hgb Conc. 34.5 g/dL (33.0-37.0); Mean Corpuscular Hgb 28.9 pg (27.0-31.0); Mean Corpuscular Volume 83.8 fL (81.0-99.0); Mean Platelet Volume 8.9 fL (7.4-10.4); Nucleated Red Blood Cells % 0 %; Platelet Count 232 10^3/uL (130-400); Red Blood Cell Count 4.95 10^6/uL (4.20-5.40); Red Cell Dist. Width 13.2 % (11.5-14.5); White Blood Cell Count 10.2 10^3/uL (4.8-10.8)
[2024-06-28] MEDS: CARDIZEM 10 MG IV (22:36)
[2024-06-28] MEDS: CARDIZEM 125 IV (22:37)
[2024-06-28 22:57] LABS: Troponin I < 0.012 ng/ml
[2024-06-28] MEDS: ZOFRAN 4 MG IV (23:10)
[2024-06-28 23:23] LABS: TSH Reflex To Free T4 5.94 uIU/ml (0.47-4.68)
--- NOTE | 2024-06-28 23:41 | EDRN ---
Cardioversion preformed by Bailee RAINEY and Dr. Enciso. Procedure started at 2325. Propofol given by Bailee RAINEY at 2325, 50mg IV. End time per Bailee RAINEY 2340. See moderate sedation flow sheet for nursing documentation.
[2024-06-28 23:42] LABS: ALT (SGPT) 19 U/L (0-35); AST (SGOT) 25 U/L (14-36); Albumin 4.5 g/dl (3.5-5.0); Alkaline Phosphatase 105 U/L (38-126); Blood Urea Nitrogen 20 mg/dl (7-17); Calcium 10.8 mg/dl (8.4-10.2); Carbon Dioxide 21 mmol/L (22-30); Chloride 104 mmol/L (98-107); Estimated Creatinine Clearance 76 ml/min; Glucose 135 mg/dl (70-99); Potassium 4.2 mmol/L (3.5-5.1); Sodium 139 mmol/L (135-145); Total Bilirubin 0.1 mg/dl (0.2-1.3); Total Protein 6.7 g/dl (6.3-8.2); eGFR > 60.00
== END 2024-06-29 00:33 | disposition home or self-care (01) ==
LOC: EMR 22:03
PROVIDERS: Clinical Nurse Specialist Family Health; EMERGENCY PHYSICIAN Emergency Medicine; FAMILY PHYSICIAN Physician Assistant
DX: I48.91 Unspecified atrial fibrillation (principal); I49.3 Ventricular premature depolarization; I11.9 Hypertensive heart disease without heart failure; E03.9 Hypothyroidism, unspecified; E86.0 Dehydration; G47.30 Sleep apnea, unspecified; Z79.01 Long term (current) use of anticoagulants; Z90.710 Acquired absence of both cervix and uterus; Z96.643 Presence of artificial hip joint, bilateral; Z96.653 Presence of artificial knee joint, bilateral
CPT/HCPCS: 99284; 92960; 96374; 96375; 96376; 96361; 80053; 84439; 84443; 84484; 85025; 93005

== ENCOUNTER → 2024-08-15 09:15 | Outpatient (REF) | payer OTHER, SELFPAY | LOC: DHSLP 09:15 | PROVIDERS: ATTENDING PHYSICIAN Internal Medicine Critical Care Medicine; FAMILY PHYSICIAN Physician Assistant | DX: G47.33 Obstructive sleep apnea (adult) (pediatric) (principal); G47.00 Insomnia, unspecified | CPT/HCPCS: 95810 ==

== ENCOUNTER → 2025-01-24 10:08 | Outpatient (REF) | payer OTHER, SELFPAY ==
[2025-01-24 11:14] LABS: % Basophils 0.3 % (0-2); % Eosinophils 2.5 % (0-6); % Immature Granulocytes 0.2 % (0-0.5); % Lymphocytes 29.4 % (20.5-51.1); % Monocytes 7.9 % (1.7-9.3); % Neutrophils 59.7 % (42.2-75.2); Absolute Eosinophils 0.2 10^3/uL (0-0.7); Absolute Lymphocytes 1.9 10^3/uL (1.2-3.4); Absolute Monocytes 0.5 10^3/uL (0.1-0.6); Absolute Neutrophils 3.8 10^3/uL (1.4-6.5); Hematocrit 43.1 % (37.0-47.0); Hemoglobin 14.2 g/dL (12.0-16.0); Mean Corp Hgb Conc. 32.9 g/dL (33.0-37.0); Mean Corpuscular Hgb 28.3 pg (27.0-31.0); Mean Platelet Volume 9.1 fL (7.4-10.4); Nucleated Red Blood Cells % 0 %; Platelet Count 189 10^3/uL (130-400); Red Blood Cell Count 5.01 10^6/uL (4.20-5.40); Red Cell Dist. Width 13.2 % (11.5-14.5); White Blood Cell Count 6.3 10^3/uL (4.8-10.8)
[2025-01-24 11:31] LABS: Urine Albumin Negative (Neg - Trace); Urine Bilirubin Negative (Negative); Urine Character Slightly Cloudy (Clear); Urine Color Yellow; Urine Glucose Negative (Negative); Urine Ketone Negative (Negative); Urine Leukocyte 1+ (Negative); Urine Nitrite Negative (Negative); Urine Occult Blood 1+ (Negative); Urine Specific Gravity 1.015 (<1.030); Urine Urobilinogen Negative (Neg - 1+)
[2025-01-24 11:42] LABS: Urine Bacteria Few (Negative); Urine Red Blood Cell 0-2 /HPF (0-2); Urine Squamous Cell >30 /LPF (Few)
[2025-01-24 11:54] LABS: ALT (SGPT) 18 U/L (0-35); AST (SGOT) 21 U/L (14-36); Albumin 3.9 g/dl (3.5-5.0); Alkaline Phosphatase 78 U/L (38-126); Blood Urea Nitrogen 17 mg/dl (7-17); Calcium 9.9 mg/dl (8.4-10.2); Carbon Dioxide 28 mmol/L (22-30); Chloride 106 mmol/L (98-107); Glucose 100 mg/dl (70-99); HDL Cholesterol 49 mg/dl; LDL Cholesterol, Calculated 133 mg/dl; Potassium 4.7 mmol/L (3.5-5.1); Sodium 138 mmol/L (135-145); Total Bilirubin 0.7 mg/dl (0.2-1.3); Total Cholesterol 206 mg/dl (50-199); Total Protein 6.5 g/dl (6.3-8.2); Triglyceride 122 mg/dl (10-149); Very Low Density Lipoprotein 24 mg/dl (0-30); eGFR > 60.00
[2025-01-24 12:08] LABS: Free T4 1.11 ng/dl (0.78-2.19)
[2025-01-24 12:22] LABS: TSH 7.86 uIU/ml (0.47-4.68)
[2025-01-26 12:08] LABS: Intact PTH 196.2 pg/ml (13.6-85.8)
== END ==
LOC: REG 10:08
PROVIDERS: ATTENDING PHYSICIAN Physician Assistant
DX: R79.89 Other specified abnormal findings of blood chemistry (principal); I10 Essential (primary) hypertension; E03.9 Hypothyroidism, unspecified; I48.0 Paroxysmal atrial fibrillation; E66.01 Morbid (severe) obesity due to excess calories; Z68.41 Body mass index [BMI] 40.0-44.9, adult; R32 Unspecified urinary incontinence
CPT/HCPCS: 36415; 80053; 80061; 81003; 81015; 83970; 84439; 84443; 85025; 87077; 87086; 87186

== ENCOUNTER → 2025-02-19 14:23 | Outpatient (REF) | payer OTHER, SELFPAY ==
[2025-02-19 16:01] LABS: Phosphorus 3.7 mg/dl (2.5-4.5)
[2025-02-19 16:17] LABS: Vitamin D, 25-OH*** 38.3 ng/mL (30-80)
== END ==
LOC: RAD 14:23
PROVIDERS: ATTENDING PHYSICIAN Physician Assistant
DX: E04.1 Nontoxic single thyroid nodule (principal); R79.89 Other specified abnormal findings of blood chemistry
CPT/HCPCS: 36415; 76536; 82306; 84100

== ENCOUNTER → 2025-03-22 13:46 | Outpatient (REF) | payer OTHER, SELFPAY ==
[2025-03-22 15:55] LABS: TSH 3.54 uIU/ml (0.47-4.68)
== END ==
LOC: REG 13:46
PROVIDERS: ATTENDING PHYSICIAN Physician Assistant
DX: E03.9 Hypothyroidism, unspecified (principal)
CPT/HCPCS: 36415; 84439; 84443

== ENCOUNTER 2025-05-27 18:14 | Inpatient (IN) | payer OTHER, SELFPAY ==
[2025-05-27] VITALS (15 sets, daily range): BP systolic 0–136; BP diastolic 50–105; PULSE 76; BMI 41.6
[2025-05-27 13:15] LABS: Hematocrit 35.6 % (37.0-47.0); Hemoglobin 11.7 g/dL (12.0-16.0); Mean Corp Hgb Conc. 32.9 g/dL (33.0-37.0); Mean Corpuscular Volume 85.0 fL (81.0-99.0); Nucleated Red Blood Cells % 0 %; Platelet Count 231 10^3/uL (130-400); Red Cell Dist. Width 13.2 % (11.5-14.5)
[2025-05-27 13:25] LABS: ALT (SGPT) 17 U/L (0-35); AST (SGOT) 20 U/L (14-36); Albumin 3.9 g/dl (3.5-5.0); Alkaline Phosphatase 78 U/L (38-126); Blood Urea Nitrogen 16 mg/dl (7-17); Calcium 9.6 mg/dl (8.4-10.2); Carbon Dioxide 25 mmol/L (22-30); Chloride 103 mmol/L (98-107); Estimated Creatinine Clearance 67 ml/min; Glucose 155 mg/dl (70-99); Potassium 4.3 mmol/L (3.5-5.1); Sodium 136 mmol/L (135-145); Total Protein 6.0 g/dl (6.3-8.2); eGFR > 60.00
--- NOTE | 2025-05-27 14:43 | ED.GENMED ---
History of Present Illness
<James Terrell, DO - Last Filed: 05/27/25 18:27>
General
Chief Complaint: Fall
Source: patient
Time Seen by Provider: 05/27/25 14:07
<FRANKO Grayson Jr.C - Last Filed: 05/27/25 17:14>
General
Source: patient
Exam Limitations: none
Nursing documentation reviewed up to this point in time: agreed with
History of Present Illness
History of Present Illness:
84-year-old female past medical history of hypertension, atrial fibrillation currently on Eliquis presenting to the emergency department today with concerns of a fall last night hitting her right knee initially felt okay was able to ambulate to some
extent but has had worsening swelling and discomfort to the area since. Has difficulty ambulating secondary to the worsening pain and swelling. Denies any head trauma. Denies any chest pain shortness of breath any numbness or weakness.
Past History
<James Terrell, DO - Last Filed: 05/27/25 18:27>
Past History
ED Past Medical History: Arrthythmia (Atrial fib), HTN, Hypothyroidism, Psychiatric (Depression) and Other (Neuropathy, Chronic sinus issues, Sleep apnea)
ED Past Surgical History: Gynecological (Hysterectomy) and Orthopedic (Robe knee replacements, Bilateral hip replacements)
Social History
Tobacco: Non-smoker
Alcohol: None
Personal:
Living: alone
Review of Systems
<Cristian Paul Jr., PA-C - Last Filed: 05/27/25 17:14>
Review of Systems
Allergies reviewed?: Yes
All Other Systems: ROS reviewed and negative except as documented in HPI and ROS
Phy Exam
<Cristian Paul Jr., PA-C - Last Filed: 05/27/25 17:14>
Physical Exam
Physical Exam:
GENERAL: Alert , in no apparent distress
EYE: pupils equal and reactive
NECK: Supple, no significant adenopathy.
ENT: o/p clr, mmm.
CARDIAC: Regular rate and rhythm .
LUNGS: Clear breath sounds bilaterally, no acute respiratory distress, no wheezes/rales/rhonchi
ABDOMEN: Soft, without focal tenderness, no r/g, no cvat
NEUROLOGICAL: Alert and oriented, no focal neuro deficits
SKIN: Significant bruising to the right medial thigh as well as the area medial to the right knee. Significant ecchymosis and tenderness some firmness to the right medial thigh. Good distal pulses no poikilothermia no pallor distally warm and dry,
skin intact.
MUSCULOSKELETAL: , well perfused.
PSYCH: Normal and appropriate interaction.
Course
<James Terrell, DO - Last Filed: 05/27/25 18:27>
Orders/Labs/Results
Orders:
Orders
05/27/25 12:52
EKG [Electrocardiogram (*1)] Urgent
Reason for Study: Vertigo / Dizzy
EKG- Treatment ONCE
05/27/25 12:59
Complete Blood Count/With Diff Urgent
Comprehensive Metabolic Panel Urgent
05/27/25 13:47
CR Knee- Right 4 Or More View* Urgent
Comment:
Reason For Exam: fall
05/27/25 14:48
HYDROmorphone [Dilaudid] 0.5 mg IV NOW STA
Ondansetron Injectable [Zofran] 4 mg IV NOW STA
05/27/25 14:55
Vascular Surgery Consult Urgent
Consulting Provider: Juan Webber III
Was physician already notified: Yes
Reason for consult: right thigh swelling, concern for compartment syndrome
05/27/25 Dinner
Cholesterol Lowering
Cholesterol Lowering: Sodium, 2 Gram
05/27/25 15:25
CT Angio Lower Ext W/Wo Iv Contrast [CT Lower Ext Angio W/wo Iv Con] Stat
Comment:
Reason For Exam: RIGHT thigh, knee swelling, hematoma eliquis, fall
05/27/25 16:39
Fentanyl Citrate/Pf [Sublimaze] 25 mcg IV [id number] PRN
HYDROmorphone [Dilaudid] 0.25 mg IV PACU-Q5MPRN PRN
Morphine Sulfate 1 mg IV PACU-Q5MPRN PRN
Ondansetron Injectable [Zofran] 4 mg IV PACU-ONCEPRN PRN
Prochlorperazine [Compazine] 5 mg IV PACU-ONCEPRN PRN
Notify MD As Directed
Notify physician if: for SDS patients with known or suspected sleep obstructive sleep apnea, monitor in the
PACU.
Notify MD for any apneic/desaturation episodes
O2 Therapy [RESP] Urgent
Titrate/Wean O2 to maintain O2 sat greater than (%): 92
Special Instructions: -Provide supplemental oxygen to achieve O2 sat of 92% or greater.
-After 15 min, may wean O2 and discontinue if patient is able to maintain O2 sat of 92%
or greater during recovery period.
If patient is a discharge home, without oxygen therapy, notify anestheiologist if
unable to maintain O2 SAT of 92% or greater on room air for MD clearance.
05/27/25 16:45
Normosol (Mult Electrolytes) [Normosol-R/Plasmalyte-A] 1,000 ml IV PER PROTOCOL
05/27/25 16:58
Type+Screen Stat
05/27/25 17:02
Fentanyl Citrate/Pf [Sublimaze] 100 mcg .ROUTE .STK-MED ONE
05/27/25 17:11
Ondansetron Injectable [Zofran] 4 mg .ROUTE .STK-MED ONE
05/27/25 17:13
Ondansetron Injectable [Zofran] 4 mg .ROUTE .STK-MED ONE
Phenylephrine HCl/0.9% NaCl [Wliian-Synephrine] 1,000 mcg .ROUTE .STK-MED ONE
Propofol [Diprivan] 20 ml .ROUTE .STK-MED
Rocuronium Oradell [Rocuronium] 50 mg .ROUTE .STK-MED ONE
Succinylcholine Chloride [Succinylcholine] 200 mg .ROUTE .STK-MED ONE
Sugammadex Sodium [Bridion] 200 mg .ROUTE .STK-MED ONE
05/27/25 17:17
ePHEDrine SULFATE [Emerphed] 50 mg .ROUTE .STK-MED ONE
05/27/25 17:18
CeFAZolin SODIUM [Ancef] 1,000 mg .ROUTE .STK-MED ONE
CeFAZolin SODIUM [Ancef] 1,000 mg .ROUTE .STK-MED ONE
05/27/25 17:22
Dexamethasone Sod Phosphate [Decadron] 20 mg .ROUTE .STK-MED ONE
Lidocaine HCl/Pf [Xylocaine-Mpf 1% Vial] 50 mg .ROUTE .STK-MED ONE
05/27/25 17:46
Admit/Transfer Patient As Directed
Co-Sign Provider:
Level of Care: Inpatient admission
Assign to:: Telemetry
Physician / Group: Parth quezadaists
Transfer to: Telemetry
Diagnosis: acute RLE hematoma - with active bleeding
Reason for Telemetry: Medication for Arrhythmia
Date to Stop Telemetry: 05/29/25
Time to Stop Telemetry: 11:00
Reason for Hospitalization: acute RLE hematoma - with active bleeding - OR hematoma evacuation
Expected length of stay greater than two midnights?: Yes
ELOS- Estimated Length of Stay in days: 3
I certify the patient meets the requirements for IP care: Yes
PRN Pain Medication Management As Directed
May give lesser potent ordered pain med per pt: Yes
preference::
Protocol:: Medication orders for pain may be administered in a
manner that supports deferring to patient preference
when the pt is:
- Requesting an ordered lesser potent pain medication.
Least to most potent pain medications are defined
as: acetaminophen < NSAID < tramadol < opioids
(morphine, oxycodone, hydromorphone).
- Requesting a lesser dose of the same medication IF
ORDERED.
- Requesting a less intrusive route of administration
if both routes are prescribed by the provider (PO <
IV).
05/27/25 17:48
Code Status As Directed
Resuscitation Status: Full Code
05/27/25 17:50
Acetaminophen [Tylenol] 650 mg PO Q4HPRN PRN
Bisacodyl [Dulcolax] 10 mg RECTAL [id number] PRN
Docusate W/Senna [Senokot-S] 1 tablet PO BIDPRN PRN
Morphine Sulfate 2 mg IV Q4HPRN PRN
Ondansetron Injectable [Zofran] 4 mg IV Q6HPRN PRN
Oxycodone [Roxicodone] 5 mg PO Q4HPRN PRN
Polyethylene Glycol Powder [Miralax] 17 grams PO DAILYPRN PRN
05/27/25 17:50
Activity As Directed
Activity Level: As Tolerated
Pneumatic Compression Sleeves As Directed
Type: Knee high
Vital Signs As Directed
Frequency: Per unit guidelines
Rx Incentive Spirometry [RESP] Routine
Frequency: q1h while awake
DX Deep Vein Thrombosis Video Routine
05/27/25 17:58
Drains As Directed
Type: Efrain Wilson
Other: BETSY x 2
Location: right thigh
To suction: Yes
Comment: strip q shift
05/27/25 17:59
Site Checks As Directed
Check access site for bleeding/hematoma: Yes
Comment: right thigh for bleeding- [id number], then q4hr checks
05/27/25 18:03
CBC/No Diff [Complete Blood Count/No Diff] Urgent
05/28/25 06:00
Basic Metabolic Panel IN AM
Complete Blood Count/No Diff IN AM
Levothyroxine [Synthroid] 75 mcg PO DAILY@0600
05/28/25 08:00
Diltiazem Extended Release [Cardizem Cd] 120 mg PO DAILY
05/29/25 11:00
DC Protocol for Telemetry ONCE
Abnormal Lab Results
05/27/25
12:59
RBC 4.19 L 10^6/uL
(4.20-5.40)
Hgb 11.7 L g/dL
(12.0-16.0)
Hct 35.6 L %
(37.0-47.0)
MCHC 32.9 L g/dL
(33.0-37.0)
Absolute Neuts (auto) 7.9 H 10^3/uL
(1.4-6.5)
Absolute Monos (auto) 0.7 H 10^3/uL
(0.1-0.6)
Neutrophils % 75.4 H %
(42.2-75.2)
Lymphocytes % 17.0 L %
(20.5-51.1)
Glucose 155 H mg/dl
(70-99)
Total Protein 6.0 L g/dl
(6.3-8.2)
05/27/25 12:59
05/27/25 12:59
Vital Signs
Initial and Last Documented VS:
Initial Vital Signs
Temp Pulse Resp BP Pulse Ox
98.2 F 56 18 104/60 97
05/27/25 12:35 05/27/25 12:35 05/27/25 12:35 05/27/25 12:35 05/27/25 12:35
Last Documented Vital Signs
Temp Pulse Resp BP Pulse Ox
98.2 F 58 18 131/61 97
05/27/25 12:35 05/27/25 16:00 05/27/25 16:00 05/27/25 16:00 05/27/25 16:00
<Cristian Paul Jr., SHIRLEY-Rebel - Last Filed: 05/27/25 17:14>
Orders/Labs/Results
Orders:
Orders
05/27/25 12:52
EKG [Electrocardiogram (*1)] Urgent
Reason for Study: Vertigo / Dizzy
EKG- Treatment ONCE
05/27/25 12:59
Complete Blood Count/With Diff Urgent
Comprehensive Metabolic Panel Urgent
05/27/25 13:47
CR Knee- Right 4 Or More View* Urgent
Comment:
Reason For Exam: fall
05/27/25 14:48
HYDROmorphone [Dilaudid] 0.5 mg IV NOW STA
Ondansetron Injectable [Zofran] 4 mg IV NOW STA
05/27/25 14:55
Vascular Surgery Consult Urgent
Consulting Provider: Juan Webber III
Was physician already notified: Yes
Reason for consult: right thigh swelling, concern for compartment syndrome
05/27/25 Dinner
Cholesterol Lowering
Cholesterol Lowering: Sodium, 2 Gram
05/27/25 15:25
CT Angio Lower Ext W/Wo Iv Contrast [CT Lower Ext Angio W/wo Iv Con] Stat
Comment:
Reason For Exam: RIGHT thigh, knee swelling, hematoma eliquis, fall
05/27/25 16:39
Fentanyl Citrate/Pf [Sublimaze] 25 mcg IV [id number] PRN
HYDROmorphone [Dilaudid] 0.25 mg IV PACU-Q5MPRN PRN
Morphine Sulfate 1 mg IV PACU-Q5MPRN PRN
Ondansetron Injectable [Zofran] 4 mg IV PACU-ONCEPRN PRN
Prochlorperazine [Compazine] 5 mg IV PACU-ONCEPRN PRN
Notify MD As Directed
Notify physician if: for SDS patients with known or suspected sleep obstructive sleep apnea, monitor in the
PACU.
Notify MD for any apneic/desaturation episodes
O2 Therapy [RESP] Urgent
Titrate/Wean O2 to maintain O2 sat greater than (%): 92
Special Instructions: -Provide supplemental oxygen to achieve O2 sat of 92% or greater.
-After 15 min, may wean O2 and discontinue if patient is able to maintain O2 sat of 92%
or greater during recovery period.
If patient is a discharge home, without oxygen therapy, notify anestheiologist if
unable to maintain O2 SAT of 92% or greater on room air for MD clearance.
05/27/25 16:45
Normosol (Mult Electrolytes) [Normosol-R/Plasmalyte-A] 1,000 ml IV PER PROTOCOL
05/27/25 16:58
Type+Screen Stat
05/27/25 17:02
Fentanyl Citrate/Pf [Sublimaze] 100 mcg .ROUTE .STK-MED ONE
05/27/25 17:11
Ondansetron Injectable [Zofran] 4 mg .ROUTE .STK-MED ONE
05/27/25 17:13
Ondansetron Injectable [Zofran] 4 mg .ROUTE .STK-MED ONE
Phenylephrine HCl/0.9% NaCl [Wilian-Synephrine] 1,000 mcg .ROUTE .STK-MED ONE
Propofol [Diprivan] 20 ml .ROUTE .STK-MED
Rocuronium Oradell [Rocuronium] 50 mg .ROUTE .STK-MED ONE
Succinylcholine Chloride [Succinylcholine] 200 mg .ROUTE .STK-MED ONE
Sugammadex Sodium [Bridion] 200 mg .ROUTE .STK-MED ONE
05/27/25 17:17
ePHEDrine SULFATE [Emerphed] 50 mg .ROUTE .STK-MED ONE
05/27/25 17:18
CeFAZolin SODIUM [Ancef] 1,000 mg .ROUTE .STK-MED ONE
CeFAZolin SODIUM [Ancef] 1,000 mg .ROUTE .STK-MED ONE
05/27/25 17:22
Dexamethasone Sod Phosphate [Decadron] 20 mg .ROUTE .STK-MED ONE
Lidocaine HCl/Pf [Xylocaine-Mpf 1% Vial] 50 mg .ROUTE .STK-MED ONE
05/27/25 17:46
Admit/Transfer Patient As Directed
Co-Sign Provider:
Level of Care: Inpatient admission
Assign to:: Telemetry
Physician / Group: Parth quezadaists
Transfer to: Telemetry
Diagnosis: acute RLE hematoma - with active bleeding
Reason for Telemetry: Medication for Arrhythmia
Date to Stop Telemetry: 05/29/25
Time to Stop Telemetry: 11:00
Reason for Hospitalization: acute RLE hematoma - with active bleeding - OR hematoma evacuation
Expected length of stay greater than two midnights?: Yes
ELOS- Estimated Length of Stay in days: 3
I certify the patient meets the requirements for IP care: Yes
PRN Pain Medication Management As Directed
May give lesser potent ordered pain med per pt: Yes
preference::
Protocol:: Medication orders for pain may be administered in a
manner that supports deferring to patient preference
when the pt is:
- Requesting an ordered lesser potent pain medication.
Least to most potent pain medications are defined
as: acetaminophen < NSAID < tramadol < opioids
(morphine, oxycodone, hydromorphone).
- Requesting a lesser dose of the same medication IF
ORDERED.
- Requesting a less intrusive route of administration
if both routes are prescribed by the provider (PO <
IV).
05/27/25 17:48
Code Status As Directed
Resuscitation Status: Full Code
05/27/25 17:50
Acetaminophen [Tylenol] 650 mg PO Q4HPRN PRN
Bisacodyl [Dulcolax] 10 mg RECTAL [id number] PRN
Docusate W/Senna [Senokot-S] 1 tablet PO BIDPRN PRN
Morphine Sulfate 2 mg IV Q4HPRN PRN
Ondansetron Injectable [Zofran] 4 mg IV Q6HPRN PRN
Oxycodone [Roxicodone] 5 mg PO Q4HPRN PRN
Polyethylene Glycol Powder [Miralax] 17 grams PO DAILYPRN PRN
05/27/25 17:50
Activity As Directed
Activity Level: As Tolerated
Pneumatic Compression Sleeves As Directed
Type: Knee high
Vital Signs As Directed
Frequency: Per unit guidelines
Rx Incentive Spirometry [RESP] Routine
Frequency: q1h while awake
DX Deep Vein Thrombosis Video Routine
05/27/25 17:58
Drains As Directed
Type: Efrain Wilson
Other: BETSY x 2
Location: right thigh
To suction: Yes
Comment: strip q shift
05/27/25 17:59
Site Checks As Directed
Check access site for bleeding/hematoma: Yes
Comment: right thigh for bleeding- [id number], then q4hr checks
05/27/25 18:03
CBC/No Diff [Complete Blood Count/No Diff] Urgent
05/28/25 06:00
Basic Metabolic Panel IN AM
Complete Blood Count/No Diff IN AM
Levothyroxine [Synthroid] 75 mcg PO DAILY@0600
05/28/25 08:00
Diltiazem Extended Release [Cardizem Cd] 120 mg PO DAILY
05/29/25 11:00
DC Protocol for Telemetry ONCE
Abnormal Lab Results
05/27/25
12:59
RBC 4.19 L 10^6/uL
(4.20-5.40)
Hgb 11.7 L g/dL
(12.0-16.0)
Hct 35.6 L %
(37.0-47.0)
MCHC 32.9 L g/dL
(33.0-37.0)
Absolute Neuts (auto) 7.9 H 10^3/uL
(1.4-6.5)
Absolute Monos (auto) 0.7 H 10^3/uL
(0.1-0.6)
Neutrophils % 75.4 H %
(42.2-75.2)
Lymphocytes % 17.0 L %
(20.5-51.1)
Glucose 155 H mg/dl
(70-99)
Total Protein 6.0 L g/dl
(6.3-8.2)
05/27/25 12:59
05/27/25 12:59
Vital Signs
Initial and Last Documented VS:
Initial Vital Signs
Temp Pulse Resp BP Pulse Ox
98.2 F 56 18 104/60 97
05/27/25 12:35 05/27/25 12:35 05/27/25 12:35 05/27/25 12:35 05/27/25 12:35
Last Documented Vital Signs
Temp Pulse Resp BP Pulse Ox
98.2 F 58 18 131/61 97
05/27/25 12:35 05/27/25 16:00 05/27/25 16:00 05/27/25 16:00 05/27/25 16:00
<Cristian Paul Jr., PA-C - Last Filed: 05/27/25 17:14>
MDM/Problems Addressed
MDM/Problems Addressed:
84-year-old female presenting to the emergency department today after a ground-level fall hitting her right leg at the time felt okay but today with worsening bruising and discomfort to the area is on Eliquis for A-fib. Otherwise vital signs are
normal here. No poikilothermia no pallor no paresthesia but significant worsening swelling to the right thigh as well as some hardening of the medial compartment of the right thigh. Concerning this vascular surgery was consult and CT angiogram was
ordered to evaluate for potential ongoing bleeding.
<James Terrell DO - Last Filed: 05/27/25 18:27>
*Pulse Oximetry
SaO2: 94
*Critical Care Note
Total Time (30-74mins, 75-104mins- exclusive of procedures): 32
comment:
Critical care statement: A total of 32 minutes of critical care time was provided for this patient. This includes management of unstable vital signs, evaluation of the patient at bedside, reviewing the patient's pertinent medical records, discussion
with consultants, review of old EKGs and review of pertinent medical records. This time with separate from time utilized to perform the aforementioned documented procedures
<Cristian Paul Jr., PA-C - Last Filed: 05/27/25 17:14>
*Pulse Oximetry
Patient hypoxic: no (97)
*Critical Care Note
Total Time (30-74mins, 75-104mins- exclusive of procedures): Not Applicable
ED Attending Note
<James Terrell DO - Last Filed: 05/27/25 18:27>
ED Attending Note
Patient seen and examined by attending physician: Yes
ED Attending Note:
I have reviewed and agree with history treatment plan by Hilario Paul. My exam revealed 84-year-old female in moderate distress. Right lower thigh and knee swelling with hematoma. Firm. Normal pulses and sensation distally. Discussed with Dr. Martinez
Lawanda, vascular surgeon who recommends CT angiography. He will see patient on consult. CTA shows active bleeding. Pt taken emergently to OR for hematoma evacuation.
-
Portions of this chart may have been created with voice recognition software.� Occasional wrong word or��sound alike� substitutions may have occurred due to the inherent limitations of voice recognition software.
Discharge Plan
Departure
Patient Disposition: Admit
Date of Disposition: 05/27/25
Time of Disposition: 17:11
Admit to: IVU
Admit to doctor: Colleen
Presentation/result/management discussed w/ accepting MD/DO: Hospitalist
Patient with high blood pressure during this ER visit?: No
Condition: Good
Covid-19: Not Applicable
Discharge Problem:
Traumatic hematoma
Interventions
Interventions:
*Risk Screen - Suicide Last Done: 05/27/25 12:52
*General Assessment Last Done: 05/27/25 12:52
*Neglect/Abuse Screening Last Done: 05/27/25 12:52
*ED- Fall Risk Assessment Last Done: 05/27/25 16:55
*ED COVID-19 Vaccine History Last Done: 05/27/25 12:52
*Nursing Disposition Last Done: 05/27/25 16:55
ED-Musculoskeletal Assessment Last Done: 05/27/25 12:52
ED- Neurological Assessment Last Done: 05/27/25 12:52
ED-Skin Assessment Last Done: 05/27/25 12:52
Discharge Date and Time
Discharge Date/Time: 05/27/25 16:55
[2025-05-27] MEDS: ZOFRAN 4 MG IV (14:51)
[2025-05-27] MEDS: DILAUDID 0.5 MG IV (14:52)
--- NOTE | 2025-05-27 15:26 | CON.VAS ---
Addendum entered and electronically signed by Deny Patterson MD 05/27/25 16:33:
Seen and examined with INTERNATIONAL CONTROLLER's in the emergency room. Agree with findings as noted below. Very pleasant 84-year-old female who is on Eliquis for atrial fibrillation. She fell yesterday. She was trying to fix something in the bathroom and got
somewhat lightheaded. She notes that since she has been on Cardizem she does get occasionally lightheaded. She fell and she is not sure if something stretched or whether she hit her leg. However she immediately noted right medial thigh distally
pain. Had some ecchymosis there. Overnight got worse with increased swelling and pain. Now she has significant pain, and difficulty extending/flexing her knee. She denies any numbness in her calf or foot. Denies any weakness in her calf or foot.
On exam/she is in no acute distress. Breathing is unlabored. Right distal thigh medially and anterior knee with significant fullness/tightness and some slight ecchymotic discoloration. No skin blistering currently. Thigh and calf compartments
are soft. Foot is warm with palpable pedal pulse and motor/sensory intact.
CT scan reviewed. Fairly moderate to large hematoma extending medial distal thigh, 2 anteriorly as well in the vicinity of the knee. (May be 2 separate hematomas but that seems less likely). Note there is extravasation noted in the hematoma, but
it does not seem related to any arterial structure. (Not to any major arterial structure or branch). I do not see the source, the SFA and popliteal artery and branches do not seem to connect to the region of hematoma.
Plan/ I am recommending relatively expeditious evacuation hematoma. She has finding of extravasation on imaging, it seems to be expanding, has significant pain, and skin ecchymoses but no skin changes yet. This seems to be a fairly tense
subcutaneous hematoma (seems to be outside of the fascial compartment from what I can ascertain). Therefore discussed with her relatively urgent evacuation for aforementioned reasons, and also for prevention of skin blistering/necrosis. I did
discuss with her however that in the setting often because the skin gets devascularized over the long-term there is a chance of problematic skin/wound issues that may require long-term care. She is understanding that clearly. She agrees to
proceed. Hold anticoagulation for now.
Original Note:
Consultation
Consultation Request
Date/Time Consultation Performed: 05/27/20 1530
Requesting Provider: Cristian Paul Jr.
Performing Provider: Lee Ann Gu, INTERNATIONAL CONTROLLER-C for Deny Patterson MD
Reason for Consultation: RLE hematoma
Medical History
-
Chief Complaint: RLE swelling s/p fall
History of Present Illness:
This is an 84 year old female with significant past medical history for atrial fibrillation, hypertension, depression, and hypothyroidism who presented to [place] ED via EMS after falling yesterday. Patient endorses that she fell on her right
knee yesterday evening, denies head trauma or loss of consciousness, and initially felt 'fine.' However, this AM she noted increased swelling at right leg particularly around her knee and as morning progressed she was unable to walk due to pain and
limited knee flexion prompting activation of EMS for ED evaluation. She denies decreased sensation or motor function to right foot, does endorse limited range of motion at knee joint, however this is limited to swelling and not pain. Endorses pain
with attempt to ambulate at right leg and described as burning sensation at knee. Takes Eliquis for a-fib, last dose yesterday evening.
Past Medical History
Past Medical History: Arrhythmias (a-fib), HTN, Hypothyroidism, Psychiatric (Depression ) and Other (Neuropathy, Chronic sinus issues, Sleep apnea)
Past Surgical History: Gynecological (Hysterectomy)
Social History
Tobacco: Non-Smoker
Alcohol: None
Personal:
Living: Alone
Allergies / Home Medications
Allergy/AdvReac Type Severity Reaction Status Date / Time
Ppbdxed-[id number] Reductase Allergy Unknown Unknown Verified 05/27/25 12:57
Inhibitor
beta matthew Allergy Unknown Uncoded 05/27/25 12:57
�Medication �Instructions �Recorded �Confirmed �Type
apixaban 5 mg tablet (Eliquis) 5 mg PO BID Blood clot 05/17/24 Rx
prevention/tx #60 tabs
cholecalciferol (vitamin D3) 50 50 mcg PO QPM Supplement 05/17/24 05/17/24 History
mcg (2,000 unit) tablet
cyanocobalamin (vitamin B-12) 2,000 mcg PO QPM Supplement 05/17/24 05/17/24 History
1,000 mcg tablet (Vitamin B-12)
diltiazem HCl 120 mg 120 mg PO DAILY Arrhythmia #30 caps 05/17/24 Rx
capsule,extended release 24 hr
docusate sodium 100 mg capsule 100 mg PO QPM Constipation 05/17/24 05/17/24 History
famotidine-Ca carb-mag hydrox 10 1 tab PO QPM Gastrointestinal Issue 05/17/24 05/17/24 History
mg-800 mg-165 mg chewable tablet
(Pepcid Complete)
levothyroxine 75 mcg tablet 75 mcg PO DAILY@0600 Thyroid 05/17/24 05/17/24 History
loratadine 10 mg tablet (Claritin) 10 mg PO QPM Allergies 05/17/24 05/17/24 History
losartan 50 mg tablet 50 mg PO QPM Blood Pressure 05/17/24 05/17/24 History
pseudoephedrine HCl 30 mg tablet 30 mg PO DAILYPRN PRN CONGESTION 05/17/24 05/17/24 History
psyllium 1 packet PO QPM Constipation 05/17/24 05/17/24 History
sodium chloride 0.65 % nasal spray 1 spray intranasal BIDPRN PRN 05/17/24 05/17/24 History
aerosol (Saline Nasal) CONGESTION
Review of Systems
-
History Source: Patient
Constitutional: Reports No Symptoms
EENT: Reports No Symptoms
Respiratory: Reports No Symptoms
Cardiac: Reports No Symptoms
Abdomen/GI: Reports No Symptoms
: Reports No Symptoms
Musculoskeletal: Reports Edema (significant swelling and bruising of RLE particularlly around knee)
Skin: Reports No Symptoms
Neurological: Reports No Symptoms
Endocrine: Reports No Symptoms
Physical Exam
Vital Signs
Temp Pulse Resp BP Pulse Ox
98.2 F 60 16 116/51 94
05/27/25 12:35 05/27/25 14:15 05/27/25 14:15 05/27/25 14:01 05/27/25 14:43
Lab Results
05/27/25 12:59
05/27/25 12:59
Physical Exam
General: No Apparent Distress
HEENT: Normocephalic, Anicteric and Atraumatic
Respiratory: Non Labored Respirations
Cardiac: Negative JVD
GI: Soft, Non Tender and Non Distended
Musculoskeletal: Edema (+3 edema of RLE around knee tight but compressible)
Skin: Warm and Dry
Neuro: AO x 3 and Nonfocal/Grossly Intact (RLE foot motor and sensation intact)
Pulses: Right Dorsalis Pedis: +2
Assessment / Plan
-
Assessment: 84 year old female s/p fall with hematoma to RLE
Plan:
Stat CT angio to r/o active bleeding, official surgical plan following CT results
Reviewed with paving stone installer attending Dr. Deny Patterson.
--- NOTE | 2025-05-27 16:33 | W.SUR.PREOP ---
Pre-Operative Surgical Note
-
I have examined this patient prior to the performance of the scheduled procedure.
The patient's condition is unchanged from the time of the current History and
Physical and the patient is able to undergo the scheduled procedure.
--- NOTE | 2025-05-27 17:31 | HPS.HSE ---
Family Physician
-
Family Physician: Adonay Steward MD
Chief Complaint
-
RLE swelling
History of Present Illness
84 y/o F, hx of A. Fib, HTN, depression, hypothyroidism presents to ER with fall suffered yesterday. She fell, into her R knee - mechanical fall, no LOC and initially felt 'fine'. Today noted swelling around R knee and progressive inability to walk
due to pain. She noted bruising in her thigh area. He is on Eliquis for Afib, last dose last evening. In ER, she underwent urgent CTA which showed 19.3 x 7.2 x 4.6 cm hematoma in the subcutaneous medial right thigh with CTA evidence for active
bleeding within the central aspect of the hematoma. Patient was taken to OR urgently for evacuation.
Medical History
Past Medical History
Past Medical History: Reports Other (A. Fib, HTN, depression, hypothyroidism)
Past Surgical History: Reports Other (Gynecological (Hysterectomy) and Orthopedic (Robe knee replacements, Bilateral hip replacements))
Social History
Tobacco: Non-smoker
Alcohol: None
Personal:
Living: Alone
Family History
Family History: Not pertinent
Allergies / Home Medications
Allergies reflects when Allergies were last updated in [employer].
Home Medications with original date entered in [employer]
Allergy/Medication List:
Allergies
Allergy/AdvReac Type Severity Reaction Status Date / Time
Uoukiib-ABR-VcY Reductase Allergy Unknown Unknown Verified 05/27/25 12:57
Inhibitor
beta matthew Allergy Unknown Uncoded 05/27/25 12:57
Home Medications
apixaban 5 mg tablet (Eliquis) 5 mg PO BID Blood clot prevention/tx #60 tabs 05/17/24
cholecalciferol (vitamin D3) 50 mcg (2,000 unit) tablet 50 mcg PO QPM Supplement 05/17/24
cyanocobalamin (vitamin B-12) 1,000 mcg tablet (Vitamin B-12) 2,000 mcg PO QPM Supplement 05/17/24
diltiazem HCl 120 mg capsule,extended release 24 hr 120 mg PO DAILY Arrhythmia #30 caps 05/17/24
docusate sodium 100 mg capsule 100 mg PO QPM Constipation 05/17/24
famotidine-Ca carb-mag hydrox 10 mg-800 mg-165 mg chewable tablet (Pepcid Complete) 1 tab PO QPM Gastrointestinal Issue 05/17/24
levothyroxine 75 mcg tablet 75 mcg PO DAILY@0600 Thyroid 05/17/24
loratadine 10 mg tablet (Claritin) 10 mg PO QPM Allergies 05/17/24
losartan 50 mg tablet 50 mg PO QPM Blood Pressure 05/17/24
pseudoephedrine HCl 30 mg tablet 30 mg PO DAILYPRN PRN CONGESTION 05/17/24
psyllium 1 packet PO QPM Constipation 05/17/24
sodium chloride 0.65 % nasal spray aerosol (Saline Nasal) 1 spray intranasal BIDPRN PRN CONGESTION 05/17/24
Review of Systems
-
A 12 point ROS was completed and negative except as noted: Yes
Physical Exam
Vital Signs
Vital Signs
Temp Pulse Resp BP Pulse Ox
98.2 F 58 18 131/61 97
05/27/25 12:35 05/27/25 16:00 05/27/25 16:00 05/27/25 16:00 05/27/25 16:00
Physical Exam
General: No Apparent Distress
HEENT: NormoCephalic and Anicteric
Respiratory: Clear; No Wheezes or Rales
Cardiac: S1/S2 and Regular Rhythm
GI: Soft and Non Tender
Skin: Other (large area of bruising and swelling inner medial thigh down to R knee. Tenderness. Pulses intact. )
Neuro: AO x 3
Psych: Calm
Laboratory Results
-
05/27/25 12:59
05/27/25 12:59
Laboratory Results
Total Bilirubin 0.6 mg/dl (0.2-1.3) 05/27/25 12:59
AST 20 U/L (14-36) 05/27/25 12:59
ALT 17 U/L (0-35) 05/27/25 12:59
Alkaline Phosphatase 78 U/L (38-126) 05/27/25 12:59
Data Reviewed
-
CT Scan: Discussed with Physician and Discussed with Patient
Impression/Plan
-
Assessment:
Mechanical fall with resulting acute RLE hematoma
- CT: 19.3 x 7.2 x 4.6 cm hematoma in the subcutaneous medial right thigh with CTA evidence for active bleeding within the central aspect of the hematoma.
- Vascular consulted; urgent OR intervention with hematoma evacuation. ok for Tele floor post-op
- hold Eliquis; no indication for reversal at present
A. Fib
- hold Eliquis
- continue Cardizem
Essential HTN
- hold ARB
depression - not on meds
hypothyroidism - on replacement
DVT ppx: SCDs
Code: Full
--- NOTE | 2025-05-27 17:59 | OR.RPT ---
Operative Report
Operative Report
PROCEDURE DATE: 05/27/2025
Preoperative diagnosis: Tense right thigh subcutaneous hematoma, expanding, active extravasation on CT scan.
Postoperative diagnosis: Same
Procedure:
1. Urgent evacuation right thigh tense subcutaneous hematoma.
2. Closure over drains.
Surgeon: Leonardo
Locksmith: PAULO Fox, required for all aspects of procedure including assistance with traction/countertraction, assistance with closure
Complications: None
Anesthesia: General
Indications for procedure:
Tense subcutaneous thigh hematoma with expansion, extravasation noted on CT scan. Significant pain. Risk/benefits/alternatives of evacuation hematoma fully discussed. Patient understood and wished to proceed.
Description of procedure:
Patient was identified brought to the operating room placed on the table in supine position. After the adequate administration of anesthesia she was prepped and draped in the standard surgical fashion. A standard preoperative timeout was
undertaken and everybody was in agreement the plan. A longitudinal incision was made in the medial mid to distal right thigh with a 15 blade that was carried through skin subcutaneous tissue with the electrocautery. Once into the subcutaneous
tissues, I immediately identified a formed hematoma. There was a large hematoma which I expressed out of the thigh in the medial segment, and also wrapped anteriorly in the tissues overlying the knee. And additionally, extended proximally/cephalad
in the medial thigh subcutaneous tissues. All this gelatinous hematoma was evacuated. Once this was completed, I did identify a couple small bleeding areas. 2 small subcutaneous bleeding vessels were successfully cauterized with the
electrocautery. There was an additional larger bleeding subcutaneous vessel that was contained within fatty tissue. I was able to clip this. After this I did not identify any further bleeding. The entirety of the thigh was now soft, having been
relieved of the tense hematoma. The entirety of the hematoma cavity was packed with lap sponges. I then sequentially removed the lap sponges inspecting each cavity confirming no other bleeding sources. We then copiously irrigated throughout the
subcutaneous hematoma pocket. Next, I placed 2 large round Ham drains inserted through separate stab incisions in the skin. 1 was positioned somewhat more anteriorly and wrapping/extending towards the knee. The second was placed more inferiorly
and extending into the proximal side portion of the cavity. These were both secured to the skin with nylon suture. Next I initially tried to closed the deep dermal layer with 3-0 Vicryl. However the sutures were just completely tearing out of the
tissue. Therefore we then just closed with interrupted 3-0 nylon vertical mattress suture. Dressings were applied. Drains were connected to bulb suction. The patient tolerated the procedure well. All sponge, needle, instrument counts were
correct at the end of the case. The patient was transported to recovery room in stable condition.
[2025-05-27 18:32] LABS: Hematocrit 30.6 % (37.0-47.0); Hemoglobin 10.1 g/dL (12.0-16.0); Mean Corp Hgb Conc. 33.0 g/dL (33.0-37.0); Mean Corpuscular Volume 84.8 fL (81.0-99.0); Platelet Count 183 10^3/uL (130-400); Red Cell Dist. Width 13.2 % (11.5-14.5)
[2025-05-28] VITALS (8 sets, daily range): BP systolic 102–144; BP diastolic 53–65; PULSE 75
[2025-05-28] MEDS: SYNTHROID 75 MCG PO (04:57)
[2025-05-28 06:22] LABS: Hematocrit 26.6 % (37.0-47.0); Hemoglobin 8.9 g/dL (12.0-16.0); Mean Corp Hgb Conc. 33.5 g/dL (33.0-37.0); Mean Corpuscular Volume 86.4 fL (81.0-99.0); Platelet Count 203 10^3/uL (130-400); Red Cell Dist. Width 13.3 % (11.5-14.5)
[2025-05-28 06:46] LABS: Blood Urea Nitrogen 20 mg/dl (7-17); Calcium 9.7 mg/dl (8.4-10.2); Carbon Dioxide 26 mmol/L (22-30); Chloride 103 mmol/L (98-107); Estimated Creatinine Clearance 60 ml/min; Glucose 152 mg/dl (70-99); Potassium 4.8 mmol/L (3.5-5.1); Sodium 134 mmol/L (135-145); eGFR > 60.00
--- NOTE | 2025-05-28 07:31 | W.PN.HOSP.TC ---
Today's Communication/Plan
-
Continue ambulation as tolerated
Holding Eliquis
Will discuss with cardiology regarding starting Cardizem
Continue monitoring drain output
Assessment / Plan
Assessment / Plan
Assessment:
84 year old female with a past medical history of A-Fib (on Eliquis and Diltiazem), hypertension, and hypothyroidism came to the ED due to recent fall. She fell on her right knee (had no loss of consciousness), and developed increased swelling and
pain around the right knee, even causing her to have difficulty with ambulation. In the ED, she underwent CT scan which showed a 19.3 x 7.2 x 4.6 cm hematoma in the subcutaneous medial right thigh with CTA evidence for active bleeding within the
central aspect of the hematoma. Vascular surgery were consulted and expeditious evacuation hematoma was recommended as she had finding of extravasation on imaging, are seemed to be expanding, causing significant pain, and skin ecchymoses without
skin changes. Patient agreed to proceed with vascular surgery and underwent urgent evacuation right thigh tense subcutaneous hematoma. She is currently post op day#1 following the procedure and reports that she has been feeling well.
Plan:
# Mechanical fall with resulting acute RLE hematoma
- CT: 19.3 x 7.2 x 4.6 cm hematoma in the subcutaneous medial right thigh with CTA evidence for active bleeding within the central aspect of the hematoma.
- Vascular consulted; urgent OR intervention with hematoma evacuation
- Currently post op day#1 following urgent evacuation of right thigh tense subcutaneous hematoma
- Holding Eliquis
- Monitor Hgb and transfuse as needed to keep hgb>7
- Follow vascular recommendations, continue monitoring BETSY drain output and ins and out monitoring
- As per vascular, can get out of bed to chair with progression to ambulation as tolerated
- PT/OT, possible vestibular disease causing dizziness. Will need vestibular therapy
- Orthostatic vitals BID
- May need outpatient ENT follow up for possible M�ni�re's disease (has ringing in ears)
# Atrial Fibrillation
- Holding Eliquis
- Patient hesitant to restart Cardizem as she thinks that may have been causing her dizziness. Her heart rate has been in the 50s-80s with sinus bradycardia seen on EKG. Will reach out to cardiology regarding restarting medication.
- Continue Cardizem as per jockey agent recommendation, once a day 120mg, down from twice a day
# Essential Hypertension
- Holding ARB, blood pressure has been under control, continue to monitor and restart as possible
# Depression
- Was on 10mg Lexapro in outpatient setting, restarted
- Counseling provided and if indicated, can provide resources for outpatient mental health care
# Hypothyroidism
- Continue Levothyroxine replacement
Full Code
DVT prophylaxis: SCDs
Anticipated Discharge: 24 - 48 hours
Subjective/Interval History
-
Date of Service: May 28, 2025
Patient seen this morning, resting comfortably in her bed. Reports that she had 1 instance of dizziness while she was being moved yesterday but since that has not had any. Reports that her pain is a lot better from yesterday following surgery,
reports no further discomfort from the drain placement. She has no other concerns at this time. Reports no nausea, vomiting, chest pain, shortness of breath.
Objective Data
-
Labs:
Laboratory Results
05/28/25
05:53
WBC 10.5
Hgb 8.9 L
Hct 26.6 L
Plt Count 203
Sodium 134 L
Potassium 4.8
Chloride 103
Carbon Dioxide 26
BUN 20 H
Creatinine 0.9
Glucose 152 H
Calcium 9.7
Vital Signs:
Vital Signs
Temp Pulse Resp BP Pulse Ox
98.3 F 78 16 102/59 95
05/28/25 03:06 05/28/25 03:06 05/28/25 03:06 05/28/25 03:06 05/28/25 03:06
I&O
05/27/25 05/28/25 05/29/25
06:59 06:59 06:59
Output Total 225 / 225
Balance -225 / -225
Review of Systems
-
History Source: Patient
Constitutional: Reports No Symptoms
Respiratory: Reports No Symptoms
Cardiac: Reports No Symptoms
Abdomen/GI: Reports No Symptoms
Genitourinary: Reports No Symptoms
Musculoskeletal: Reports Muscle Pain (Right lower extremity pain, much improved from before)
Skin: Reports No Symptoms
Neuro: Reports No Symptoms
Endocrine: Reports No Symptoms
Hematologic / Lymphatic: Reports No Symptoms
Allergy / Immunology: Reports No Symptoms
Physical Exam
-
General: Well Developed, Well Nourished, No Apparent Distress, Comfortable, Conversant and Obese
HEENT: Normocephalic and Atraumatic
Respiratory: Clear to Auscultation and Non Labored Respirations
Cardiac: Regular Rhythm and S1/S2
GI: Soft, Nontender, Nondistended and Normal Bowel Sounds
Genito-urinary: No Costovertebral Tender
Musculoskeletal: No Clubbing, No Cyanosis, No Edema and Other (Right lower extremity wrapped with Chepe bandages following surgery, palpable pedal pulse. [address], draining serosanguinous fluid. Normal exam left lower extremity)
Skin: Warm and Dry
Neuro: Awake, Alert, Oriented, AO x 3, No Motor Deficits and Other (History of neuropathy of the lower extremities, decreased sensation bilateral lower extremities)
Psych: Calm
Data Reviewed
-
CT Scan: Report Reviewed by me, Discussed with Physician, Discussed with Nurse and Discussed with Patient
Labs: Labs Reviewed by me, Discussed with Physician, Discussed with Nurse and Discussed with Patient
--- NOTE | 2025-05-28 09:11 | W.PN.VS ---
Addendum entered and electronically signed by Juan Webber III, MD 05/28/25 10:48:
This patient was seen and examined in collaboration with REDD Johnson. I agree with the history and physical exam as well as the assessment and plan.
Keep BETSY drains
ALIZA wrap and elevate leg while in bed
PT, ok for OOB
Hold anticoag for now
Will follow along with you
Signed:
Juan Webber III, MD
Vascular Surgery
[facility]
Original Note:
Today's Communication / Plan
-
Plan reviewed with attending Dr. Juan Webber III
Assessment/Plan
-
Assessment: 84 year old female POD#1 Urgent evacuation right thigh tense subcutaneous hematoma. Closure over drains.
Plan:
Can get OOB to chair with progression to ambulation as tolerated
Continue BETSY drain and I&O monitoring
From a vascular perspective would continue to hold home OAC
Subjective Data
-
Date of Service: May 28, 2025
Patient seen and examined at bedside, reports improvement in pain at right lower extremity from preop, comfortable. Offers no complaints. Endorses unchanged paraesthesia at right foot from baseline, reports chronic peripheral neuropathy.
Objective Data
-
Vital Signs
Temp Pulse Resp BP Pulse Ox
98.6 F 83 18 138/65 96
05/28/25 07:45 05/28/25 08:36 05/28/25 07:45 05/28/25 08:36 05/28/25 07:45
Intake and Output
05/27/25 05/28/25 05/29/25
06:59 06:59 06:59
Output Total 225 / 225
Balance -225 / -225
Output:
Drain Output (Total) 225 / 225
Right Leg Efrain-Wilson A 110 / 110
Right Leg Efrain-Wilson B 115 / 115
Other:
How many times incontinent 1
SATURATED amount urine
Lab Results
05/28/25 05:53
05/28/25 05:53
Calcium 9.7 mg/dl (8.4-10.2) 05/28/25 05:53
Total Bilirubin 0.6 mg/dl (0.2-1.3) 05/27/25 12:59
AST 20 U/L (14-36) 05/27/25 12:59
ALT 17 U/L (0-35) 05/27/25 12:59
Alkaline Phosphatase 78 U/L (38-126) 05/27/25 12:59
Total Protein 6.0 g/dl (6.3-8.2) L 05/27/25 12:59
Albumin 3.9 g/dl (3.5-5.0) 05/27/25 12:59
Physical Exam
-
No apparent distress, resting comfortably in bed
No tachycardia
No dyspnea on room air
Right lower extremity incision clean, dry, and intact, suture line well approximated, leg with +1 edema improved form preop, BETSY drain x2 with serosanguineous output
Right foot warm, +2 DP pulse, motor intact
[2025-05-28] MEDS: CARDIZEM CD 120 MG PO (11:14)
[2025-05-28] MEDS: ROXICODONE 5 MG PO ×2 (12:16→20:52)
--- NOTE | 2025-05-28 14:47 | CM ---
CM reviewed medical records. CM met with patient in room. Patient does not have a history of VN or SNF. Patient has a CPAP. Patient is active wit her PCP. Patient has medication coverage.
CM will pend discharge planning for further information from PT/OT.
Patient is hopeful for a discharge to home with [facility].
PLAN: pending PT.
[2025-05-28] MEDS: TUMS CHEWABLE TABLET 200 MG PO (20:52)
[2025-05-28] MEDS: LEXAPRO 10 MG PO (20:53)
[2025-05-29] VITALS (12 sets, daily range): BP systolic 101–143; BP diastolic 55–86; PULSE 56–93
--- NOTE | 2025-05-29 02:29 | DOWNTIME ---
There was a [employer] Downtime on 05/29/2025 from 0100 to 05/29/2025 at 0215. Downtime documentation of patient's care, including medication administrations, has been reconciled in the electronic record per guidelines. Refer to the
patient's paper chart under the miscellaneous tab to see printed paper medication records and downtime forms.
[2025-05-29] MEDS: SYNTHROID 75 MCG PO (06:02)
[2025-05-29 08:07] LABS: Hematocrit 22.7 % (37.0-47.0); Hemoglobin 7.6 g/dL (12.0-16.0); Mean Corp Hgb Conc. 33.5 g/dL (33.0-37.0); Mean Corpuscular Volume 87.0 fL (81.0-99.0); Platelet Count 166 10^3/uL (130-400); Red Cell Dist. Width 13.2 % (11.5-14.5)
--- NOTE | 2025-05-29 08:18 | W.PN.HOSP.TC ---
Addendum entered and electronically signed by Eleanor Petty MD, Resident 05/29/25 13:55:
CDI:
Acute blood loss anemia likely secondary to vascular surgery, likely not related to Eliquis
Paroxysmal A-Fib
Original Note:
Today's Communication/Plan
-
Continue monitoring orthostatic vitals
Continue ambulation as possible
Awaiting vascular recommendations regarding drains
Continue monitoring hemoglobin
Watch for any further bleeding/hematoma development
Not resuming Eliquis at this time
Assessment / Plan
Assessment / Plan
Assessment:
84 year old female with a past medical history of A-Fib (on Eliquis and Diltiazem), hypertension, and hypothyroidism came to the ED due to recent fall. She fell on her right knee (had no loss of consciousness), and developed increased swelling and
pain around the right knee, even causing her to have difficulty with ambulation. In the ED, she underwent CT scan which showed a 19.3 x 7.2 x 4.6 cm hematoma in the subcutaneous medial right thigh with CTA evidence for active bleeding within the
central aspect of the hematoma. Vascular surgery were consulted and expeditious evacuation hematoma was recommended as she had finding of extravasation on imaging, are seemed to be expanding, causing significant pain, and skin ecchymoses without
skin changes. Patient agreed to proceed with vascular surgery and underwent urgent evacuation right thigh tense subcutaneous hematoma. She is currently post op day#2 following the procedure and reports that she has been feeling well.
Plan:
# Mechanical fall with resulting acute RLE hematoma
- CT: 19.3 x 7.2 x 4.6 cm hematoma in the subcutaneous medial right thigh with CTA evidence for active bleeding within the central aspect of the hematoma.
- Vascular consulted; urgent OR intervention with hematoma evacuation
- Currently post op day#2 following urgent evacuation of right thigh tense subcutaneous hematoma
- Holding Eliquis
- Monitor Hgb and transfuse as needed to keep hgb>7, 7.6 today we will get H&H in the afternoon
- Follow vascular recommendations, continue monitoring BETSY drain output and ins and out monitoring
- As per vascular, can get out of bed to chair with progression to ambulation as tolerated. Was able to ambulate well yesterday
- PT/OT, possible vestibular disease causing dizziness. Will need vestibular therapy
- Orthostatic vitals BID, around a 20 point drop from supine to standing
- May need outpatient ENT follow up for possible M�ni�re's disease (has ringing in ears)
# Atrial Fibrillation
- Holding Eliquis
- Patient hesitant to restart Cardizem as she thinks that may have been causing her dizziness. Her heart rate has been in the 50s-80s with sinus bradycardia seen on EKG. Will reach out to cardiology regarding restarting medication.
- Continue Cardizem as per silver steward recommendation, once a day 120mg, down from twice a day
# Essential Hypertension
- Holding ARB, blood pressure has been under control, continue to monitor and restart as possible
# Depression
- Was on 10mg Lexapro in outpatient setting, restarted
- Counseling provided and if indicated, can provide resources for outpatient mental health care
# Hypothyroidism
- Continue Levothyroxine replacement
Full Code
DVT prophylaxis: SCDs
Anticipated Discharge: Within 24 hours
Subjective/Interval History
-
Date of Service: May 29, 2025
Patient seen today, was resting comfortably in bed. Reports that she had some instances of dizziness yesterday however was very mild. Reports that she has been able to walk with assistance and is currently pain-free.
Objective Data
-
Labs:
Laboratory Results
05/29/25
06:56
WBC 7.9
Hgb 7.6 L
Hct 22.7 L
Plt Count 166
Sodium Pending
Potassium Pending
Chloride Pending
Carbon Dioxide Pending
BUN Pending
Creatinine Pending
Glucose Pending
Calcium Pending
Total Bilirubin Pending
AST Pending
ALT Pending
Alkaline Phosphatase Pending
Vital Signs:
Vital Signs
Temp Pulse Resp BP Pulse Ox
97.9 F 61 16 119/61 96
05/29/25 07:57 05/29/25 07:57 05/29/25 07:57 05/29/25 07:57 05/29/25 07:57
I&O
05/28/25 05/29/25 05/30/25
06:59 06:59 06:59
Intake Total 540 / 540
Output Total 225 / 225 755 / 755
Balance -225 / -225 -215 / -215
Review of Systems
-
History Source: Patient
Constitutional: Reports No Symptoms
Respiratory: Reports No Symptoms
Cardiac: Reports No Symptoms
Abdomen/GI: Reports No Symptoms
Genitourinary: Reports No Symptoms
Musculoskeletal: Reports No Symptoms
Skin: Reports No Symptoms
Neuro: Reports No Symptoms
Endocrine: Reports No Symptoms
Hematologic / Lymphatic: Reports No Symptoms
Allergy / Immunology: Reports No Symptoms
Physical Exam
-
General: Well Developed, Well Nourished, No Apparent Distress, Comfortable, Conversant and Obese
HEENT: Normocephalic and Atraumatic
Respiratory: Clear to Auscultation and Non Labored Respirations
Cardiac: Regular Rhythm and S1/S2
GI: Soft, Nontender, Nondistended and Normal Bowel Sounds
Genito-urinary: No Costovertebral Tender
Musculoskeletal: No Clubbing, No Cyanosis, No Edema and Other (Right lower extremity wrapped with Chepe bandages following surgery, palpable pedal pulse. [address], draining serosanguinous fluid. Normal exam left lower extremity)
Skin: Warm and Dry
Neuro: Awake, Alert, Oriented, AO x 3, No Motor Deficits and Other (History of neuropathy of the lower extremities, decreased sensation bilateral lower extremities)
Psych: Calm
Data Reviewed
-
Labs: Labs Reviewed by me, Discussed with Physician, Discussed with Nurse and Discussed with Patient
[2025-05-29 08:37] LABS: ALT (SGPT) 18 U/L (0-35); AST (SGOT) 25 U/L (14-36); Albumin 3.2 g/dl (3.5-5.0); Alkaline Phosphatase 55 U/L (38-126); Blood Urea Nitrogen 17 mg/dl (7-17); Calcium 9.1 mg/dl (8.4-10.2); Carbon Dioxide 30 mmol/L (22-30); Chloride 103 mmol/L (98-107); Estimated Creatinine Clearance 67 ml/min; Glucose 102 mg/dl (70-99); Potassium 4.3 mmol/L (3.5-5.1); Sodium 134 mmol/L (135-145); Total Protein 5.1 g/dl (6.3-8.2); eGFR > 60.00
[2025-05-29] MEDS: CARDIZEM CD 120 MG PO (08:48)
--- NOTE | 2025-05-29 10:28 | W.PN.VS ---
Addendum entered and electronically signed by Deny Patterson MD 05/29/25 14:51:
Seen and examined earlier this a.m. with GALLERY ASSISTANT Riccardo. Agree with findings as noted below. Dressings all changed. Right thigh incision clean dry and intact. Thigh is soft. No recurrent hematoma. Much flatter and softer than preoperatively. JPs
with sanguinous/serosanguineous drainage, moderate volumes is noted. Hemoglobin 7.6. Plan/as discussed and noted below. Transfuse packed red blood cells given hemoglobin drop. Continue to hold Eliquis for now. Continue JPs.
Original Note:
Today's Communication / Plan
-
Patient seen and evaluated bedside with Dr. Deny Patterson M.D., below plan reviewed with attending.
Assessment/Plan
-
Assessment: 84 year old female POD#2 Urgent evacuation right thigh tense subcutaneous hematoma. Closure over drains.
Plan:
Can get OOB to chair with progression to ambulation as tolerated
Continue BETSY drain and I&O monitoring
From a vascular perspective would continue to hold home OAC
Given patient is symptomatic to anemia will transfuse 1 unit packed red blood cell
Would continue to observe inpatient given decreased hemoglobin
Subjective Data
-
Date of Service: May 29, 2025
Patient seen and examined at bedside, offers no complaints. Denies nausea, vomiting, fever, and chills. Does endorse lightheadedness with position changes. Reports well-managed postoperative pain.
Objective Data
-
Vital Signs
Temp Pulse Resp BP Pulse Ox
97.9 F 61 16 119/61 96
05/29/25 07:57 05/29/25 07:57 05/29/25 07:57 05/29/25 07:57 05/29/25 07:57
Intake and Output
05/28/25 05/29/25 05/30/25
06:59 06:59 06:59
Intake Total 540 / 540
Output Total 225 / 225 755 / 755
Balance -225 / -225 -215 / -215
Intake:
Oral fluids 540 / 540
Output:
Drain Output (Total) 225 / 225 255 / 255
Right Leg Efrain-Wilson A 110 / 110 75 / 75
Right Leg Efrain-Wilson B 115 / 115 180 / 180
Urine, Voided 500 / 500
Other:
How many times incontinent 1 1
SMALL amount urine
How many times incontinent 1
SATURATED amount urine
Number of approximated MODERATE 1 1
amounts of urine
Lab Results
05/29/25 06:56
05/29/25 06:56
Calcium 9.1 mg/dl (8.4-10.2) 05/29/25 06:56
Total Bilirubin 0.2 mg/dl (0.2-1.3) 05/29/25 06:56
AST 25 U/L (14-36) 05/29/25 06:56
ALT 18 U/L (0-35) 05/29/25 06:56
Alkaline Phosphatase 55 U/L (38-126) 05/29/25 06:56
Total Protein 5.1 g/dl (6.3-8.2) L 05/29/25 06:56
Albumin 3.2 g/dl (3.5-5.0) L 05/29/25 06:56
Physical Exam
-
No apparent distress, resting comfortably in bed
No tachycardia
No dyspnea on room air
Right lower extremity incision clean, dry, and intact, suture line well approximated, leg with +1 edema improved form preop, BETSY drain x2 with serosanguineous output
Right foot warm, +2 DP pulse, motor intact
--- NOTE | 2025-05-29 10:56 | CM ---
Reviewed the chart notes and spoke with vascular team. Patient will be discharged with BETSY drains to RLE. Discussed VN agencies. Patient agreeable to referral to VN. Referral placed in [facility]. Patient has support son and neighbors. PT
recommends home care. CM continues to be available to patient/family and is monitoring medical plan for needs at discharge.
Plan: Discharge to home with VN services.
--- NOTE | 2025-05-29 13:38 | PN.CDI ---
CDI
- -
CDI:
Physician Documentation Request
Admit Date: 05/27/25 18:14
Dear Doctor,
Please review the following and provide your response in the progress notes.
Clinical Indicators:
- Patient admit for ABLA 2/2 RLE hematoma
- On Eliquis for afib
- Eliquis on hold
Laboratory Tests
05/27/25 05/28/25 05/29/25
12:59 05:53 06:56
Hgb 11.7 L 8.9 L 7.6 L
Please clarify the relationship between these conditions:
Yes, _ABLA__ is related to/associated with/due to _Eliquis__.
No, __ABLA_ is not related to/associated with/due to _Eliquis__ but it is due to . (Please specify)
Unable to determine
Use of terms such as suspected, likely, concern for, or probable (associated with a specific diagnosis that is being evaluated, monitored, or treated as if it exists) are acceptable and can be coded in the inpatient setting, when documented at the
time of discharge.
Thank you,
James Mao RN
CDI Specialist
Please use your independent medical judgment in providing your response.
--- NOTE | 2025-05-29 13:44 | PN.CDI ---
CDI
- -
CDI:
Physician Documentation Request
Admit Date: 05/27/25 18:14
Dear Doctor,
Please review the following and provide your response in the progress notes.
Clinical Indicators:
- 05/29 PN indicates Atrial fibrillation without specificity
- Home med Eliquis and diltiazem
- 05/27 EKG sinus bradycardia with RBBB
If possible, please provide further specificity regarding atrial fibrillation, such as:
Paroxysmal atrial fibrillation - terminates spontaneously or with intervention within 7 days of onset
Persistent atrial fibrillation - episodes of continuous AF that last more than 7 days and do not self-terminate
Permanent atrial fibrillation - when a decision has been made to accept the presence of AF and there is no further attempt to restore or maintain sinus rhythm
Other - please specify
Use of terms such as suspected, likely, concern for, or probable (associated with a specific diagnosis that is being evaluated, monitored, or treated as if it exists) are acceptable and can be coded in the inpatient setting, when documented at the
time of discharge.
Thank you,
James Mao RN
CDI Specialist
Please use your independent medical judgment in providing your response.
[2025-05-29] MEDS: LEXAPRO 10 MG PO (21:12)
[2025-05-29] MEDS: FLUSH (NSS) 1 FLUSH IV (21:12)
[2025-05-30] MEDS: SYNTHROID 75 MCG PO (05:34)
[2025-05-30 07:37] LABS: ALT (SGPT) 18 U/L (0-35); AST (SGOT) 23 U/L (14-36); Albumin 3.1 g/dl (3.5-5.0); Alkaline Phosphatase 54 U/L (38-126); Blood Urea Nitrogen 16 mg/dl (7-17); Calcium 9.1 mg/dl (8.4-10.2); Carbon Dioxide 30 mmol/L (22-30); Chloride 103 mmol/L (98-107); Estimated Creatinine Clearance 67 ml/min; Glucose 97 mg/dl (70-99); Potassium 4.3 mmol/L (3.5-5.1); Sodium 135 mmol/L (135-145); Total Protein 5.0 g/dl (6.3-8.2); eGFR > 60.00
[2025-05-30 07:38] LABS: Hematocrit 25.4 % (37.0-47.0); Hemoglobin 8.3 g/dL (12.0-16.0); Mean Corp Hgb Conc. 32.7 g/dL (33.0-37.0); Mean Corpuscular Volume 86.4 fL (81.0-99.0); Platelet Count 174 10^3/uL (130-400); Red Cell Dist. Width 13.5 % (11.5-14.5)
[2025-05-30 07:40] VITALS: BP 133/60
--- NOTE | 2025-05-30 07:48 | W.PN.VS ---
Addendum entered and electronically signed by Deny Patterson MD 05/30/25 16:38:
Seen and examined earlier with WATER PLUMBER. This is a late entry. Agree with findings and plan as noted and discussed below.
Original Note:
Today's Communication / Plan
-
Seen and assessed with Dr. Patterson
Assessment/Plan
-
Assessment: 84 year old female POD#3 Urgent evacuation right thigh tense subcutaneous hematoma. Closure over drains.
Plan:
Dressings changed at bedside
PT/ambulation
Continue BETSY drain and I&O monitoring
From a vascular perspective would continue to hold home OAC
Hemoglobin stable this morning
Subjective Data
-
Date of Service: May 30, 2025
Patient seen at bedside examined Dr. Patterson. Patient offers no complaints at this time. No events overnight. Dressings and drains intact.
Objective Data
-
Vital Signs
Temp Pulse Resp BP Pulse Ox
98.1 F 68 16 143/64 98
05/29/25 23:24 05/29/25 23:24 05/29/25 23:24 05/29/25 23:24 05/29/25 23:24
Intake and Output
05/29/25 05/30/25 05/31/25
06:59 06:59 06:59
Intake Total 540 / 540 730 / 730
Output Total 755 / 755 230 / 230
Balance -215 / -215 500 / 500
Intake:
Oral fluids 540 / 540 480 / 480
Blood Product Amount Infused ( 250 / 250
mL)
Packed Rbc Leukoreduced Unit 250 / 250
[id number]
Output:
Drain Output (Total) 255 / 255 230 / 230
Right Leg Efrain-Wilson A 75 / 75 118 / 118
Right Leg Efrain-Wilson B 180 / 180 112 / 112
Urine, Voided 500 / 500
Other:
How many times incontinent 1 1
SMALL amount urine
How many times incontinent 1
MODERATE amount urine
Number of approximated MODERATE 1 1
amounts of urine
Lab Results
05/30/25 06:39
05/30/25 06:39
Calcium 9.1 mg/dl (8.4-10.2) 05/30/25 06:39
Total Bilirubin 0.5 mg/dl (0.2-1.3) 05/30/25 06:39
AST 23 U/L (14-36) 05/30/25 06:39
ALT 18 U/L (0-35) 05/30/25 06:39
Alkaline Phosphatase 54 U/L (38-126) 05/30/25 06:39
Total Protein 5.0 g/dl (6.3-8.2) L 05/30/25 06:39
Albumin 3.1 g/dl (3.5-5.0) L 05/30/25 06:39
Physical Exam
-
No apparent distress, resting comfortably in bed
No tachycardia
No dyspnea on room air
Right lower extremity incision clean, dry, and intact, suture line well approximated, leg with +1 edema improved form preop, BETSY drain x2 with serosanguineous output
Right foot warm, +2 DP pulse, motor intact
--- NOTE | 2025-05-30 07:59 | W.PN.HOSP.TC ---
Today's Communication/Plan
-
Continue ambulation
Continue monitoring drain output
Holding Eliquis still
Watch for any increased evidence of bleeding
Monitor pain
Assessment / Plan
Assessment / Plan
Assessment:
84 year old female with a past medical history of A-Fib (on Eliquis and Diltiazem), hypertension, and hypothyroidism came to the ED due to recent fall. She fell on her right knee (had no loss of consciousness), and developed increased swelling and
pain around the right knee, even causing her to have difficulty with ambulation. In the ED, she underwent CT scan which showed a 19.3 x 7.2 x 4.6 cm hematoma in the subcutaneous medial right thigh with CTA evidence for active bleeding within the
central aspect of the hematoma. Vascular surgery were consulted and expeditious evacuation hematoma was recommended as she had finding of extravasation on imaging, are seemed to be expanding, causing significant pain, and skin ecchymoses without
skin changes. Patient agreed to proceed with vascular surgery and underwent urgent evacuation right thigh tense subcutaneous hematoma. She is currently post op day#2 following the procedure and reports that she has been feeling well.
Plan:
# Mechanical fall with resulting acute RLE hematoma
- CT: 19.3 x 7.2 x 4.6 cm hematoma in the subcutaneous medial right thigh with CTA evidence for active bleeding within the central aspect of the hematoma.
- Vascular consulted; urgent OR intervention with hematoma evacuation
- Currently post op day#2 following urgent evacuation of right thigh tense subcutaneous hematoma
- Holding Eliquis as per vascular
- Monitor Hgb and transfuse as needed to keep hgb>7, 7.6 yesterday was given a unit of blood, hemoglobin levels improved following that, today was 8.3.
- Continue to monitor CBC and transfuse as needed
- Follow vascular recommendations, continue monitoring BETSY drain output and ins and out monitoring
- Continued PT and ambulation
- PT/OT, possible vestibular disease causing dizziness. Will need vestibular therapy
- Orthostatic vitals BID, around a 20 point drop from supine to standing
- May need outpatient ENT follow up for possible M�ni�re's disease (has ringing in ears)
# Atrial Fibrillation
- Holding Eliquis as per vascular
- Patient hesitant to restart Cardizem as she thinks that may have been causing her dizziness. Her heart rate has been in the 50s-80s with sinus bradycardia seen on EKG. Will reach out to cardiology regarding restarting medication.
- Continue Cardizem as per tool hardener recommendation, once a day 120mg, down from twice a day
# Essential Hypertension
- Holding ARB, blood pressure has been under control, continue to monitor and restart as possible
# Depression
- Was on 10mg Lexapro in outpatient setting, restarted
- Counseling provided and if indicated, can provide resources for outpatient mental health care
# Hypothyroidism
- Continue Levothyroxine replacement
Full Code
DVT prophylaxis: SCDs
Anticipated Discharge: 24 - 48 hours
Subjective/Interval History
-
Date of Service: May 30, 2025
Patient seen resting in bed today, sitting up and reports no pain at this time. States that she is feeling well and is a lot less dizzier than yesterday. Feels like she felt much better following receiving blood yesterday. Overall in good spirits
and has no complaints at this time.
Objective Data
-
Labs:
Laboratory Results
05/30/25
06:39
WBC 6.3
Hgb 8.3 L
Hct 25.4 L
Plt Count 174
Sodium 135
Potassium 4.3
Chloride 103
Carbon Dioxide 30
BUN 16
Creatinine 0.8
Glucose 97
Calcium 9.1
Total Bilirubin 0.5
AST 23
ALT 18
Alkaline Phosphatase 54
Vital Signs:
Vital Signs
Temp Pulse Resp BP Pulse Ox
98.1 F 68 16 143/64 98
05/29/25 23:24 05/29/25 23:24 05/29/25 23:24 05/29/25 23:24 05/29/25 23:24
I&O
05/29/25 05/30/25 05/31/25
06:59 06:59 06:59
Intake Total 540 / 540 730 / 730
Output Total 755 / 755 230 / 230
Balance -215 / -215 500 / 500
Review of Systems
-
History Source: Patient
Constitutional: Reports No Symptoms
Respiratory: Reports No Symptoms
Cardiac: Reports No Symptoms
Abdomen/GI: Reports No Symptoms
Genitourinary: Reports No Symptoms
Musculoskeletal: Reports No Symptoms
Skin: Reports No Symptoms
Neuro: Reports No Symptoms
Endocrine: Reports No Symptoms
Hematologic / Lymphatic: Reports No Symptoms
Allergy / Immunology: Reports No Symptoms
Physical Exam
-
General: Well Developed, Well Nourished, No Apparent Distress, Comfortable, Conversant and Obese
HEENT: Normocephalic and Atraumatic
Respiratory: Clear to Auscultation and Non Labored Respirations; Negative Wheezes or Crackles
Cardiac: Regular Rhythm and S1/S2; Negative Bradycardic
GI: Soft, Nontender, Nondistended and Normal Bowel Sounds
Genito-urinary: No Costovertebral Tender
Musculoskeletal: No Clubbing, No Cyanosis, No Edema and Other (Right lower extremity wrapped with Chepe bandages following surgery, palpable pedal pulse. [address], continuing to draining serosanguinous fluid. Normal exam left lower extremity)
Skin: Warm and Dry
Neuro: Awake, Alert, Oriented, AO x 3, No Motor Deficits and Other (History of neuropathy of the lower extremities, decreased sensation bilateral lower extremities)
Psych: Calm
Data Reviewed
-
Labs: Labs Reviewed by me, Discussed with Physician and Discussed with Patient
[2025-05-30] MEDS: CARDIZEM CD 120 MG PO (09:33)
[2025-05-30 11:10] VITALS: BP 141/71
--- NOTE | 2025-05-30 14:11 | CM ---
CM following re: discharge planning.
Reviewed pt' chart, met with pt.
Pt is POD#3 Urgent evacuation right thigh tense subcutaneous hematoma. Closure over drains. Continue supportive care.
PT and OT continue recommending home PT/OT. A referral to [facility] noted.
Please fax discharge instructions to [facility] at [phone]
D/C plan: home with [facility] and family support. Son to transport at discharge.
CM will follow with discharge plan updates as needed.
[2025-05-30 15:37] VITALS: BP 134/60
[2025-05-30 19:21] VITALS: BP 156/71
[2025-05-30] MEDS: FLUSH (NSS) 1 FLUSH IV (20:10)
[2025-05-30] MEDS: LEXAPRO 10 MG PO (20:10)
[2025-05-30 22:10] VITALS: PULSE 72
[2025-05-30 23:21] VITALS: BP 120/77
[2025-05-31 03:21] VITALS: BP 119/84
[2025-05-31] MEDS: SYNTHROID 75 MCG PO (06:16)
[2025-05-31 06:37] LABS: Hematocrit 26.5 % (37.0-47.0); Hemoglobin 8.7 g/dL (12.0-16.0); Mean Corp Hgb Conc. 32.8 g/dL (33.0-37.0); Mean Corpuscular Volume 86.9 fL (81.0-99.0); Platelet Count 199 10^3/uL (130-400); Red Cell Dist. Width 13.5 % (11.5-14.5)
[2025-05-31 07:13] VITALS: BP 137/71
[2025-05-31 07:37] LABS: ALT (SGPT) 18 U/L (0-35); AST (SGOT) 20 U/L (14-36); Albumin 3.2 g/dl (3.5-5.0); Alkaline Phosphatase 63 U/L (38-126); Blood Urea Nitrogen 14 mg/dl (7-17); Calcium 9.3 mg/dl (8.4-10.2); Carbon Dioxide 32 mmol/L (22-30); Chloride 103 mmol/L (98-107); Estimated Creatinine Clearance 67 ml/min; Glucose 104 mg/dl (70-99); Potassium 4.2 mmol/L (3.5-5.1); Sodium 136 mmol/L (135-145); Total Protein 5.2 g/dl (6.3-8.2); eGFR > 60.00
--- NOTE | 2025-05-31 08:02 | W.PN.HOSP.TC ---
Today's Communication/Plan
-
Continue monitoring drains
Awaiting Vascular Evals
Continue PT/OT
Assessment / Plan
Assessment / Plan
Assessment:
84 year old female with a past medical history of A-Fib (on Eliquis and Diltiazem), hypertension, and hypothyroidism came to the ED due to recent fall. She fell on her right knee (had no loss of consciousness), and developed increased swelling and
pain around the right knee, even causing her to have difficulty with ambulation. In the ED, she underwent CT scan which showed a 19.3 x 7.2 x 4.6 cm hematoma in the subcutaneous medial right thigh with CTA evidence for active bleeding within the
central aspect of the hematoma. Vascular surgery were consulted and expeditious evacuation hematoma was recommended as she had finding of extravasation on imaging, are seemed to be expanding, causing significant pain, and skin ecchymoses without
skin changes. Patient agreed to proceed with vascular surgery and underwent urgent evacuation right thigh tense subcutaneous hematoma. She is currently post op day#3 following the procedure and reports that she has been feeling well.
Plan:
# Mechanical fall with resulting acute RLE hematoma
- CT: 19.3 x 7.2 x 4.6 cm hematoma in the subcutaneous medial right thigh with CTA evidence for active bleeding within the central aspect of the hematoma.
- Vascular consulted; urgent OR intervention with hematoma evacuation
- Currently post op day#2 following urgent evacuation of right thigh tense subcutaneous hematoma
- Holding Eliquis as per vascular
- Monitor Hgb and transfuse as needed to keep hgb>7
- Follow vascular recommendations, continue monitoring BETSY drain output and ins and out monitoring
- Continued PT and ambulation
- PT/OT, possible vestibular disease causing dizziness. Will need vestibular therapy
- Orthostatic vitals back to normal now
- Disposition plan is to go back home with VN
- May need outpatient ENT follow up for possible M�ni�re's disease (has ringing in ears)
- Acute blood loss anemia likely secondary to vascular surgery, likely not related to Eliquis
#Paroxysmal Atrial Fibrillation
- Holding Eliquis as per vascular
- Continue Cardizem as per inpatient pharmacist recommendation, once a day 120mg, down from twice a day
# Essential Hypertension
- Holding ARB, blood pressure has been under control, continue to monitor and restart as possible
# Depression
- Was on 10mg Lexapro in outpatient setting, restarted
- Counseling provided and if indicated, can provide resources for outpatient mental health care
# Hypothyroidism
- Continue Levothyroxine replacement
Full Code
DVT prophylaxis: SCDs
Anticipated Discharge: Within 24 hours
Subjective/Interval History
-
Date of Service: May 31, 2025
Patient seen this morning, was resting comfortably in her bed. Reports that she has been feeling much better and has not had as many episodes of dizziness as she used to. Overall feeling well, however her drain continues to drain serosanguineous
fluid and she is concerned about how much longer she will have those drains in. She has no pain at this time and has been eating and drinking well without any nausea or vomiting. Reports no chest pain, shortness of breath, difficulty breathing.
Objective Data
-
Labs:
Laboratory Results
05/31/25
05:57
WBC 6.6
Hgb 8.7 L
Hct 26.5 L
Plt Count 199
Sodium 136
Potassium 4.2
Chloride 103
Carbon Dioxide 32 H
BUN 14
Creatinine 0.8
Glucose 104 H
Calcium 9.3
Total Bilirubin 0.7
AST 20
ALT 18
Alkaline Phosphatase 63
Vital Signs:
Vital Signs
Temp Pulse Resp BP Pulse Ox
98.2 F 69 16 119/84 98
05/31/25 03:21 05/31/25 03:21 05/31/25 03:21 05/31/25 03:21 05/31/25 03:21
I&O
05/30/25 05/31/25 06/01/25
06:59 06:59 06:59
Intake Total 730 / 730 1440 / 1440
Output Total 230 / 230 208 / 208
Balance 500 / 500 1232 / 1232
Review of Systems
-
History Source: Patient
Constitutional: Reports No Symptoms
Respiratory: Reports No Symptoms
Cardiac: Reports No Symptoms
Abdomen/GI: Reports No Symptoms
Genitourinary: Reports No Symptoms
Musculoskeletal: Reports No Symptoms
Skin: Reports No Symptoms
Neuro: Reports No Symptoms; Denies Dizzy
Endocrine: Reports No Symptoms
Hematologic / Lymphatic: Reports No Symptoms
Allergy / Immunology: Reports No Symptoms
Physical Exam
-
General: Well Developed, Well Nourished, No Apparent Distress, Comfortable, Conversant and Obese
HEENT: Normocephalic and Atraumatic
Respiratory: Clear to Auscultation and Non Labored Respirations; Negative Wheezes or Crackles
Cardiac: Regular Rhythm and S1/S2; Negative Bradycardic
GI: Soft, Nontender, Nondistended and Normal Bowel Sounds
Genito-urinary: No Costovertebral Tender
Musculoskeletal: No Clubbing, No Cyanosis, No Edema and Other (Right lower extremity wrapped with Chepe bandages following surgery, palpable pedal pulse. [address], continuing to draining serosanguinous fluid. Normal exam left lower extremity)
Skin: Warm and Dry
Neuro: Awake, Alert, Oriented, AO x 3, No Motor Deficits and Other (History of neuropathy of the lower extremities, decreased sensation bilateral lower extremities)
Psych: Calm
Data Reviewed
-
Labs: Labs Reviewed by me, Discussed with Physician and Discussed with Patient
[2025-05-31] MEDS: CARDIZEM CD 120 MG PO (09:54)
--- NOTE | 2025-05-31 09:54 | W.PN.VS ---
Today's Communication / Plan
-
Seen and assessed with Dr Webber
Assessment/Plan
-
Assessment: 84 year old female POD#4 Urgent evacuation right thigh tense subcutaneous hematoma. Closure over drains.
Plan:
Daily dressing changes
PT/ambulation
Continue BETSY drain and I&O monitoring, may pull one in AM if low output
May resume Eliquis tonight
Hemoglobin remains stable
Would monitor one more night, plan for DC tomorrow if all stable
Subjective Data
-
Date of Service: May 31, 2025
Pt seen at bedside this am with Dr Webber. Pt offers no complaints at this time. No events overnight. Dressing and BETSY drains intact
Objective Data
-
Vital Signs
Temp Pulse Resp BP Pulse Ox
97.7 F 60 24 137/71 99
05/31/25 07:13 05/31/25 07:13 05/31/25 07:13 05/31/25 07:13 05/31/25 07:13
Intake and Output
05/30/25 05/31/25 06/01/25
06:59 06:59 06:59
Intake Total 730 / 730 1440 / 1440
Output Total 230 / 230 208 / 208 20 / 20
Balance 500 / 500 1232 / 1232 -20 / -20
Intake:
Oral fluids 480 / 480 1440 / 1440
Blood Product Amount Infused ( 250 / 250
mL)
Packed Rbc Leukoreduced Unit 250 / 250
[id number]
Output:
Drain Output (Total) 230 / 230 208 / 208 20 / 20
Right Leg Efrain-Wilson A 118 / 118 33 / 33 5 / 5
Right Leg Efrain-Wilson B 112 / 112 175 / 175 15 / 15
Other:
How many times incontinent 1
SMALL amount urine
How many times incontinent 1 1
MODERATE amount urine
Number of approximated MODERATE 1 1 1
amounts of urine
Lab Results
05/31/25 05:57
05/31/25 05:57
Calcium 9.3 mg/dl (8.4-10.2) 05/31/25 05:57
Total Bilirubin 0.7 mg/dl (0.2-1.3) 05/31/25 05:57
AST 20 U/L (14-36) 05/31/25 05:57
ALT 18 U/L (0-35) 05/31/25 05:57
Alkaline Phosphatase 63 U/L (38-126) 05/31/25 05:57
Total Protein 5.2 g/dl (6.3-8.2) L 05/31/25 05:57
Albumin 3.2 g/dl (3.5-5.0) L 05/31/25 05:57
Physical Exam
-
No apparent distress, resting comfortably in bed
No tachycardia
No dyspnea on room air
Right lower extremity incision clean, dry, and intact, suture line well approximated, leg with +1 edema improved form preop, BETSY drain x2 with serosanguineous output
Right foot warm, +2 DP pulse, motor intact
BETSY a: 25cc
BETSY b: 120cc
[2025-05-31] MEDS: TYLENOL 650 MG PO (14:36)
[2025-05-31 15:37] VITALS: BP 118/54
[2025-05-31] MEDS: LEXAPRO 10 MG PO (20:51)
[2025-05-31] MEDS: COZAAR 50 MG PO (20:51)
[2025-05-31] MEDS: ELIQUIS 5 MG PO (20:51)
[2025-05-31 22:02] VITALS: PULSE 67
[2025-05-31 23:27] VITALS: BP 154/75
[2025-06-01] MEDS: SYNTHROID 75 MCG PO (06:17)
[2025-06-01 07:35] VITALS: BP 132/59
--- NOTE | 2025-06-01 07:49 | W.PN.VS ---
Today's Communication / Plan
-
Plan:
Keep BETSY B in place until consistently less than 30 cc/24 hrs
Can go with BETSY's and will pull in the office
Anticoag
ALIZA wrap
F/U in the office after DC
Assessment/Plan
-
Assessment: 84 year old female post op from evacuation right thigh tense subcutaneous hematoma. Closure over drains.
Plan:
Keep BETSY B in place until consistently less than 30 cc/24 hrs
Can go with BETSY's and will pull in the office
Anticoag
ALIZA wrap
F/U in the office after DC
Subjective Data
-
Date of Service: June 01, 2025
Comfortable, no complaints
Objective Data
-
Vital Signs
Temp Pulse Resp BP Pulse Ox
98.1 F 66 17 154/75 98
05/31/25 23:27 05/31/25 23:27 05/31/25 23:27 05/31/25 23:27 05/31/25 23:27
Intake and Output
05/31/25 06/01/25 06/02/25
06:59 06:59 06:59
Intake Total 1440 / 1440 1080 / 1080
Output Total 208 / 208 145 / 145
Balance 1232 / 1232 935 / 935
Intake:
Oral fluids 1440 / 1440 1080 / 1080
Output:
Drain Output (Total) 208 / 208 145 / 145
Right Leg Efrain-Wilson A 33 / 33
Right Leg Efrain-Wilson B 175 / 175 120 / 120
Other:
How many times incontinent 1
MODERATE amount urine
Number of approximated MODERATE 1 1
amounts of urine
Calcium 9.3 mg/dl (8.4-10.2) 05/31/25 05:57
Total Bilirubin 0.7 mg/dl (0.2-1.3) 05/31/25 05:57
AST 20 U/L (14-36) 05/31/25 05:57
ALT 18 U/L (0-35) 05/31/25 05:57
Alkaline Phosphatase 63 U/L (38-126) 05/31/25 05:57
Total Protein 5.2 g/dl (6.3-8.2) L 05/31/25 05:57
Albumin 3.2 g/dl (3.5-5.0) L 05/31/25 05:57
Physical Exam
-
Comfortable, non toxic
Alert/oriented
RLE incisions clean
BETSY A removed
BETSY B left in place
[2025-06-01 08:55] LABS: Hematocrit 27.8 % (37.0-47.0); Hemoglobin 9.1 g/dL (12.0-16.0); Mean Corp Hgb Conc. 32.7 g/dL (33.0-37.0); Mean Corpuscular Volume 87.1 fL (81.0-99.0); Platelet Count 233 10^3/uL (130-400); Red Cell Dist. Width 13.9 % (11.5-14.5)
[2025-06-01] MEDS: CARDIZEM CD 120 MG PO (09:05)
[2025-06-01] MEDS: ELIQUIS 5 MG PO (09:06)
[2025-06-01] MEDS: COZAAR PO (09:07)
--- NOTE | 2025-06-01 09:12 | PTCARENOTE ---
pt took own Sudafed 10mg from purse d/t nasal congestion she thought would turn into a severe headache.
[2025-06-01 09:24] LABS: Blood Urea Nitrogen 14 mg/dl (7-17); Calcium 9.5 mg/dl (8.4-10.2); Carbon Dioxide 29 mmol/L (22-30); Chloride 102 mmol/L (98-107); Estimated Creatinine Clearance 77 ml/min; Glucose 100 mg/dl (70-99); Potassium 4.1 mmol/L (3.5-5.1); Sodium 134 mmol/L (135-145); eGFR > 60.00
--- NOTE | 2025-06-01 09:45 | W.PN.HOSP.TC ---
Today's Communication/Plan
-
Discharge to home today
Assessment / Plan
Assessment / Plan
Assessment:
84 year old female with a past medical history of A-Fib (on Eliquis and Diltiazem), hypertension, and hypothyroidism came to the ED due to recent fall. She fell on her right knee (had no loss of consciousness), and developed increased swelling and
pain around the right knee, even causing her to have difficulty with ambulation. In the ED, she underwent CT scan which showed a 19.3 x 7.2 x 4.6 cm hematoma in the subcutaneous medial right thigh with CTA evidence for active bleeding within the
central aspect of the hematoma. Vascular surgery were consulted and expeditious evacuation hematoma was recommended as she had finding of extravasation on imaging, are seemed to be expanding, causing significant pain, and skin ecchymoses without
skin changes. Patient agreed to proceed with vascular surgery and underwent urgent evacuation right thigh tense subcutaneous hematoma. She is currently post op day#4 following the procedure and reports that she has been feeling well.
Plan:
# Mechanical fall with resulting acute RLE hematoma
- CT: 19.3 x 7.2 x 4.6 cm hematoma in the subcutaneous medial right thigh with CTA evidence for active bleeding within the central aspect of the hematoma.
- Vascular consulted; urgent OR intervention with hematoma evacuation
- Currently post op day#4 following urgent evacuation of right thigh tense subcutaneous hematoma
- Monitor Hgb and transfuse as needed to keep hgb>7
- Follow vascular recommendations, continue monitoring BETSY drain output and ins and out monitoring
- Continued PT and ambulation
- PT/OT, possible vestibular disease causing dizziness. Will need vestibular therapy
- Orthostatic vitals back to normal now
- Disposition plan is to go back home with VN
- May need outpatient ENT follow up for possible M�ni�re's disease (has ringing in ears)
- Acute blood loss anemia likely secondary to vascular surgery, likely not related to Eliquis
- Eliquis resumed last night, hemoglobin levels remained stable following that
- Vascular surgery removed one of the drains today, will follow-up in outpatient setting to remove the second one
#Paroxysmal Atrial Fibrillation
- Restarted Eliquis last night
- Continue Cardizem as per clinic mgr recommendation, once a day 120mg, down from twice a day
# Essential Hypertension
- Losartan resumed last night, blood pressures remaining stable
# Depression
- Was on 10mg Lexapro in outpatient setting, restarted
- Counseling provided and if indicated, can provide resources for outpatient mental health care
# Hypothyroidism
- Continue Levothyroxine replacement
Full Code
DVT prophylaxis: SCDs
Anticipated Discharge: Today
Subjective/Interval History
-
Date of Service: June 01, 2025
Patient seen this morning, resting comfortably in bed. Reports that she is feeling much better and did not have any dizziness yesterday. Very happy to hear that she will be able to go home today. Had one of her drains pulled out today without any
issue. Will have to follow-up with vascular surgery in the outpatient setting to remove the other drain however.
Objective Data
-
Labs:
Laboratory Results
06/01/25
08:26
WBC 7.3
Hgb 9.1 L
Hct 27.8 L
Plt Count 233
Sodium 134 L
Potassium 4.1
Chloride 102
Carbon Dioxide 29
BUN 14
Creatinine 0.7
Glucose 100 H
Calcium 9.5
Vital Signs:
Vital Signs
Temp Pulse Resp BP Pulse Ox
98.2 F 58 18 132/59 97
06/01/25 07:35 06/01/25 07:35 06/01/25 07:35 06/01/25 07:35 06/01/25 07:35
I&O
05/31/25 06/01/25 06/02/25
06:59 06:59 06:59
Intake Total 1440 / 1440 1080 / 1080
Output Total 208 / 208 145 / 145
Balance 1232 / 1232 935 / 935
Review of Systems
-
History Source: Patient
Constitutional: Reports No Symptoms
Respiratory: Reports No Symptoms
Cardiac: Reports No Symptoms
Abdomen/GI: Reports No Symptoms
Genitourinary: Reports No Symptoms
Musculoskeletal: Reports No Symptoms
Skin: Reports No Symptoms
Neuro: Reports No Symptoms; Denies Dizzy
Endocrine: Reports No Symptoms
Hematologic / Lymphatic: Reports No Symptoms
Allergy / Immunology: Reports No Symptoms
Physical Exam
-
General: Well Developed, Well Nourished, No Apparent Distress, Comfortable, Conversant and Obese
HEENT: Normocephalic and Atraumatic
Respiratory: Clear to Auscultation and Non Labored Respirations; Negative Wheezes or Crackles
Cardiac: Regular Rhythm and S1/S2; Negative Bradycardic
GI: Soft, Nontender, Nondistended and Normal Bowel Sounds
Genito-urinary: No Costovertebral Tender
Musculoskeletal: No Clubbing, No Cyanosis, No Edema and Other (Right lower extremity wrapped with Chepe bandages following surgery, palpable pedal pulse. [address], continuing to draining serosanguinous fluid. Normal exam left lower extremity)
Skin: Warm and Dry
Neuro: Awake, Alert, Oriented, AO x 3, No Motor Deficits and Other (History of neuropathy of the lower extremities, decreased sensation bilateral lower extremities)
Psych: Calm
Data Reviewed
-
Labs: Labs Reviewed by me, Discussed with Physician, Discussed with Nurse and Discussed with Patient
[2025-06-01 11:10] VITALS: BP 131/63
--- NOTE | 2025-06-01 11:50 | W.DCSUMMARY ---
Documented by User: Eleanor Petty MD, Resident 06/01/25 12:01
Discharge Summary
Discharge Data
Date of Admission: 05/27/25
Date of Discharge: 06/01/25
-
Pending Results: No
Hospital Course
Discharging Physician : Dr. Miguel Puga, Dr. Eleanor Petty
Disposition : Home with VN
Primary care physician :
Adonay Steward MD
Principal Discharge diagnosis :
Mechanical fall with resulting acute RLE hematoma
Chronic Discharge diagnosis :
Paroxysmal A-Fib
Essential Hypertension
Hypothyroidism
Depression
Hospital Course :
84 year old female with a past medical history of A-Fib (on Eliquis and Diltiazem), hypertension, and hypothyroidism came to the ED due to recent fall. She fell on her right knee (had no loss of consciousness), and developed increased swelling and
pain around the right knee, even causing her to have difficulty with ambulation. In the ED, she underwent CT scan which showed a 19.3 x 7.2 x 4.6 cm hematoma in the subcutaneous medial right thigh with CTA evidence for active bleeding within the
central aspect of the hematoma. Vascular surgery were consulted and expeditious evacuation hematoma was recommended as she had finding of extravasation on imaging, are seemed to be expanding, causing significant pain, and skin ecchymoses without
skin changes. Patient's Eliquis was held and patient agreed to proceed with vascular surgery and underwent urgent evacuation right thigh tense subcutaneous hematoma.
She had two drains placed following surgery which continued to drain serosanguineous fluid. Patient developed some blood loss anemia post surgery for which she was transfused a unit of blood. Patient continued to do well and resumed her home
medications including reduced Diltiazem from twice a day to once a day following discussion with Cardiology. Patient recovered well post surgery and one of the drains were removed on day of discharge with one still left in place. Patient given
instructions to follow up with vascular surgery in the outpatient office for follow up and to get drain removed at that time. Patient also given instructions to follow up with her [employer] in the outpatient setting within 1-2 weeks. Her ears may
have been causing her dizziness so she was asked to set up an appointment with ENT as well for further management. She was also instructed to follow up with her PCP within one week.
Important imaging findings :
CT Lower Ext Angio W/wo Iv Con:
19.3 x 7.2 x 4.6 cm hematoma in the subcutaneous medial right thigh with CTA evidence for active bleeding within the central aspect of the hematoma.
Small knee joint effusion.
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
Patent right three-vessel runoff.
Procedure findings : N/A
Discharge Plan
-
Patient Disposition: Home (Routine Discharge)
Discharge Diagnosis/Procedures: Mechanical fall with resulting acute RLE hematoma
Paroxysmal A-Fib
Essential Hypertension
Hypothyroidism
Depression
Diet: Regular
Activity: As tolerated
Driving Restrictions: Not until seen by your Dr
Bathing Restrictions: None
Other Services: VN
Activity Restrictions/Additional Instructions:
Daily change of clean, dry gauze to BETSY sites
Daily nonadherent, gauze, gentle ALIZA to thigh, and as needed if soiled
Referrals:
Deanne Crawford PA-C [Family Provider, Internal Medicine] - in less than 1 week
Referral Note: Please follow up with your PCP within 1 week
Yobani Hanks DO [Active, Cardiology] - in one to two weeks
Referral Note: Please follow up with Cardiology within 1-2 weeks
Shanti Quintero CRNP [Specified Professional Personl, Vascular Surgery] - 06/14/25 1:00 pm
Referral Note: Vascular surgery office follow up
Additional Discharge Medication Instructions: Follow up with your PCP within 1 week
Follow up with Cardiology within 1-2 weeks
Please follow up with Vascular Surgery as discussed, your appointment is on 06/14/2025 (1pm). The drain will be taken out at that time.
We have sent Meclizine 25mg 10 tablets to take as needed for dizziness. Please follow up with ENT regarding your ear problems in the future as well.
Please continue taking Eliquis 5mg Twice a day
Please continue taking Diltiazem 120mg, once a day
Please continue taking Losartan 50mg once day
Prescriptions:
New
meclizine 25 mg Tablet
25 mg PO Q8HPRN PRN (Reason: dizziness) 10 Days Qty: 10 0RF
Continued
losartan 50 mg Tablet
50 mg PO QPM
levothyroxine 75 mcg Tablet
75 mcg PO DAILY@0600
diltiazem HCl 120 mg Capsule,Extended Release 24hr
120 mg PO DAILY Qty: 30 11RF
Eliquis 5 mg Tablet
5 mg PO BID Qty: 60 11RF
cyanocobalamin (vitamin B-12) [Vitamin B-12] 1,000 mcg Tablet
2,000 mcg PO DAILY
docusate sodium 100 mg Capsule
100 mg PO PRN PRN (Reason: constipation)
loratadine [Claritin] 10 mg Tablet
10 mg PO DAILY
Pepcid Complete 10-800-165 mg Tablet,Chewable
1 tab PO PRN PRN (Reason: GI upset)
cholecalciferol (vitamin D3) 50 mcg (2,000 unit) Tablet
50 mcg PO DAILY
escitalopram oxalate [Lexapro] 10 mg Tablet
10 mg PO QPM
Discontinued
psyllium Packet
1 packet PO QPM
pseudoephedrine HCl 30 mg Tablet
30 mg PO DAILYPRN PRN (Reason: CONGESTION)
Saline Nasal 0.65 % Aerosol,[place]
1 spray INTRANASAL BIDPRN PRN (Reason: CONGESTION)
Discharge Orders:
Discharge Patient (As Directed); Ordered 06/01/25
Ordered By: Eleanor Petty
Discharge Date and Time
Print Language: AZERBAIJANI

Documented by User: Miguel Puga DO 06/01/25 13:02
Discharge Summary
Discharge Data
Date of Admission: 05/27/25
Date of Discharge: 06/01/25
Total time spent discharging patient (in min): 34
Discharge Plan
-
Patient Disposition: Home (Routine Discharge)
Discharge Diagnosis/Procedures: Mechanical fall with resulting acute RLE hematoma
Paroxysmal A-Fib
Essential Hypertension
Hypothyroidism
Depression
Diet: Regular
Activity: As tolerated
Driving Restrictions: Not until seen by your Dr
Bathing Restrictions: None
Other Services: VN
Activity Restrictions/Additional Instructions:
Daily change of clean, dry gauze to BETSY sites
Daily nonadherent, gauze, gentle ALIZA to thigh, and as needed if soiled
Referrals:
Deanne Crawford PA-C [Family Provider, Internal Medicine] - in less than 1 week
Referral Note: Please follow up with your PCP within 1 week
Yobani Hanks DO [Active, Cardiology] - in one to two weeks
Referral Note: Please follow up with Cardiology within 1-2 weeks
Shanti Quintero CRNP [Specified Professional Personl, Vascular Surgery] - 06/14/25 1:00 pm
Referral Note: Vascular surgery office follow up
Additional Discharge Medication Instructions: Follow up with your PCP within 1 week
Follow up with Cardiology within 1-2 weeks
Please follow up with Vascular Surgery as discussed, your appointment is on 06/14/2025 (1pm). The drain will be taken out at that time.
We have sent Meclizine 25mg 10 tablets to take as needed for dizziness. Please follow up with ENT regarding your ear problems in the future as well.
Please continue taking Eliquis 5mg Twice a day
Please continue taking Diltiazem 120mg, once a day
Please continue taking Losartan 50mg once day
Prescriptions:
New
meclizine 25 mg Tablet
25 mg PO Q8HPRN PRN (Reason: dizziness) 10 Days Qty: 10 0RF
Continued
losartan 50 mg Tablet
50 mg PO QPM
levothyroxine 75 mcg Tablet
75 mcg PO DAILY@0600
diltiazem HCl 120 mg Capsule,Extended Release 24hr
120 mg PO DAILY Qty: 30 11RF
Eliquis 5 mg Tablet
5 mg PO BID Qty: 60 11RF
cyanocobalamin (vitamin B-12) [Vitamin B-12] 1,000 mcg Tablet
2,000 mcg PO DAILY
docusate sodium 100 mg Capsule
100 mg PO PRN PRN (Reason: constipation)
loratadine [Claritin] 10 mg Tablet
10 mg PO DAILY
Pepcid Complete 10-800-165 mg Tablet,Chewable
1 tab PO PRN PRN (Reason: GI upset)
cholecalciferol (vitamin D3) 50 mcg (2,000 unit) Tablet
50 mcg PO DAILY
escitalopram oxalate [Lexapro] 10 mg Tablet
10 mg PO QPM
Discontinued
psyllium Packet
1 packet PO QPM
pseudoephedrine HCl 30 mg Tablet
30 mg PO DAILYPRN PRN (Reason: CONGESTION)
Saline Nasal 0.65 % Aerosol,[place]
1 spray INTRANASAL BIDPRN PRN (Reason: CONGESTION)
Discharge Orders:
Discharge Patient (As Directed); Ordered 06/01/25
Ordered By: Eleanor Petty
Discharge Date and Time
Print Language: AZERBAIJANI
--- NOTE | 2025-06-01 13:31 | CM ---
Patient seen at bedside on , patient for discharge today. Patient to be followed by [facility]. CM spoke with liaison and patient is accepted. Patient completed IMM and form placed on chart. Patient states family to transport patient home. CM will
continue to follow for discharge planning needs.
Plan; home with [facility]
== END 2025-06-01 13:11 | disposition home health service (06) | DRG 580 ==
LOC: 2 SOUTH 18:14
PROVIDERS: Emergency Medicine; Nurse Practitioner; Nurse Practitioner Acute Care; ADMITTING PHYSICIAN Internal Medicine; ATTENDING PHYSICIAN Internal Medicine; EMERGENCY PHYSICIAN Emergency Medicine; FAMILY PHYSICIAN Physician Assistant; OTHER PHYSICIAN Surgery Vascular Surgery
PROC: 5A09357 Assistance with Respiratory Ventilation, Less than 24 Consecutive Hours, Continuous Positive Airway Pressure (ICD-10-PCS; 2025-05-27)
PROC: 0JCL0ZZ Extirpation of Matter from Right Upper Leg Subcutaneous Tissue and Fascia, Open Approach (ICD-10-PCS; 2025-05-27)
PROC: 30233N1 Transfusion of Nonautologous Red Blood Cells into Peripheral Vein, Percutaneous Approach (ICD-10-PCS; 2025-05-29)
DX: S70.11XA Contusion of right thigh, initial encounter (principal); D62 Acute posthemorrhagic anemia; Z68.41 Body mass index [BMI] 40.0-44.9, adult; W18.30XA Fall on same level, unspecified, initial encounter; I48.0 Paroxysmal atrial fibrillation; I10 Essential (primary) hypertension; F32.A Depression, unspecified; E03.9 Hypothyroidism, unspecified; E66.9 Obesity, unspecified; H93.19 Tinnitus, unspecified ear; R42 Dizziness and giddiness; G47.30 Sleep apnea, unspecified; K59.00 Constipation, unspecified; Z96.643 Presence of artificial hip joint, bilateral; Z96.653 Presence of artificial knee joint, bilateral; Z79.890 Hormone replacement therapy; Z79.899 Other long term (current) drug therapy; Z79.01 Long term (current) use of anticoagulants
CPT/HCPCS: 10140; 73564; 73706; 80048; 80053; 85025; 85027; 86850; 86900; 86901; 86920; 87070; 93005; 94660; 96374; 96375; 97163; 97530; 99291; P9016; Q9967

== ENCOUNTER → 2025-07-17 11:09 | Outpatient (REF) | payer OTHER, SELFPAY ==
[2025-07-17 11:52] LABS: Hematocrit 36.7 % (37.0-47.0); Hemoglobin 11.5 g/dL (12.0-16.0); Mean Corp Hgb Conc. 31.3 g/dL (33.0-37.0); Mean Corpuscular Volume 80.8 fL (81.0-99.0); Nucleated Red Blood Cells % 0 %; Platelet Count 249 10^3/uL (130-400); Red Cell Dist. Width 13.8 % (11.5-14.5)
[2025-07-17 15:34] LABS: Ferritin 21.3 ng/ml (11.1-264.0)
[2025-07-17 16:47] LABS: Blood Urea Nitrogen 15 mg/dl (7-17); Calcium 10.1 mg/dl (8.4-10.2); Carbon Dioxide 27 mmol/L (22-30); Chloride 102 mmol/L (98-107); Glucose 97 mg/dl (70-99); Iron 44 ug/dl (37-170); Potassium 4.3 mmol/L (3.5-5.1); Sodium 135 mmol/L (135-145); eGFR > 60.00
[2025-07-17 16:56] LABS: Total Iron Binding Capacity 447 ug/dl (265-497)
== END ==
LOC: REG 11:09
PROVIDERS: ATTENDING PHYSICIAN Physician Assistant; OTHER PHYSICIAN Physician Assistant Medical
DX: Z09 Encounter for follow-up examination after completed treatment for conditions other than malignant neoplasm (principal); S80.11XD Contusion of right lower leg, subsequent encounter; I48.0 Paroxysmal atrial fibrillation; R06.09 Other forms of dyspnea
CPT/HCPCS: 36415; 80048; 82728; 83540; 83550; 83880; 85025